=== PATIENT | male | born 1970 | race Caucasian/White ===

== ENCOUNTER → 2017-11-21 08:53 | Outpatient (CLI) | payer OTHER, SELFPAY ==
[2017-11-21 10:24] LABS: PSA,Total- Diagnostic 0.83 ng/mL (0.0-4.0)
== END ==
PROVIDERS: Family Provider Internal Medicine; PCP Internal Medicine; Referring Provider Internal Medicine; Visit Provider Internal Medicine
DX: Z12.5 Encounter for screening for malignant neoplasm of prostate (principal)
CPT/HCPCS: 36415; 84153

== ENCOUNTER → 2019-11-28 08:57 | Outpatient (CLI) | payer OTHER, SELFPAY ==
[2018-03-05 10:40] VITALS: BMI 31.6
== END | disposition home or self-care (01) ==
PROVIDERS: PCP Internal Medicine; Referring Provider Internal Medicine; Visit Provider Internal Medicine
CPT/HCPCS: 36415; 84153; G0103

== ENCOUNTER → 2020-12-01 08:52 | Outpatient (CLI) | payer OTHER, SELFPAY | PROVIDERS: PCP Internal Medicine; Referring Provider Internal Medicine; Visit Provider Internal Medicine | DX: Z12.5 Encounter for screening for malignant neoplasm of prostate (principal) | CPT/HCPCS: 36415; 84153; G0103 ==

== ENCOUNTER 2021-02-22 05:29 | Day surgery (SDC) | payer OTHER, SELFPAY ==
[2021-02-22 05:53] VITALS: BP 144/93; PULSE 57; RESP 16; TEMP 36.6; O2SAT 98; BMI 34.9
[2021-02-22] MEDS: Lactated Ringers 1,000 ML 15 ML IV (05:59)
--- NOTE | 2021-02-22 06:32 | PCM.HP.BLA ---
History and Physical Date of Admission: 02/22/21 Solomon is a 50-year-old gentleman who arrives here for screening colonoscopy. He has never had a colonoscopy in the past. He has no significant past medical history. He does not have any problems with his bowels. He is not having any bloating, abdominal pain or GI bleeding. His weight has been stable. He does not take any medicines on a daily basis. He has no known drug allergies. Overall he is in a really good state of health. Past medical history -negative Past surgical history-negative Allergies-no known drug allergies Review of systems-all 16 review of systems except those pertinent positives mentioned HPI. Social history-negative alcohol and drugs Physical examination-blood pressure is 144/93, pulse is 57, respiratory 16, temperature is 98, satting 98% on room air Generally no acute distress HEENT-normocephalic atraumatic Neck-no JVD or lymphadenopathy Lungs-clear to auscultation bilaterally Heart-regular rate regular rhythm Abdomen soft nontender nondistended Extremities-no clubbing cyanosis or edema Assessment and plan: 50-year-old gentleman comes in for screening colonoscopy. He was explained alternatives, risk, benefits including and not was any bleeding, infection, sepsis, perforation, need for emergent surgery and . He will have an ASA of 1.
[2021-02-22 07:06] VITALS: BP 108/84; BP 144/93; PULSE 60; RESP 16; TEMP 36.1; O2SAT 96
--- NOTE | 2021-02-22 07:08 | OP.COLON_ITS ---
Patient Name: Solomon Reddy Procedure Date: 02/22/2021 6:28 AM Date of : 1970 Age: 50 Procedure: Colonoscopy Indications: Screening for colorectal malignant neoplasm Providers: Julien Mcdaniels DO Medicines: See the Anesthesia note for documentation of the administered medications Patient Profile: Last Colonoscopy: date unknown. Unable to locate last colonoscopy report. Last Colonoscopy: none. The patient's first colonoscopy is today. Complications: No immediate complications. Procedure: Pre-Anesthesia Assessment: - Prior to the procedure, a History and Physical was performed, and patient medications and allergies were reviewed. The patient is competent. The risks and benefits of the procedure and the sedation options and risks were discussed with the patient. All questions were answered and informed consent was obtained. Patient identification and proposed procedure were verified by the physician in the pre-procedure area. Mental Status Examination: alert and oriented. Airway Examination: normal oropharyngeal airway and neck mobility. Respiratory Examination: clear to auscultation. CV Examination: normal. Prophylactic Antibiotics: The patient does not require prophylactic antibiotics. Prior Anticoagulants: The patient has taken no previous anticoagulant or antiplatelet agents. After reviewing the risks and benefits, the patient was deemed in satisfactory condition to undergo the procedure. The anesthesia plan was to use moderate sedation / analgesia (conscious sedation). Immediately prior to administration of medications, the patient was re-assessed for adequacy to receive sedatives. The heart rate, respiratory rate, oxygen saturations, blood pressure, adequacy of pulmonary ventilation, and response to care were monitored throughout the procedure. The physical status of the patient was re-assessed after the procedure. After I obtained informed consent, the scope was passed under direct vision. Throughout the procedure, the patient's blood pressure, pulse, and oxygen saturations were monitored continuously. The colonoscope was introduced through the anus and advanced to the cecum, identified by appendiceal orifice and ileocecal valve. The ileocecal valve, appendiceal orifice, and rectum were photographed. Moderate Sedation: Moderate (conscious) sedation was personally administered by an anesthesia professional. The following parameters were monitored: oxygen saturation, heart rate, blood pressure, respiratory rate, EKG, adequacy of pulmonary ventilation, and response to care. Total physician intraservice time was 15 minutes. Scope In: 6:46:37 AM Scope Withdrawal Time 0 hours 12 minutes 39 seconds Scope Out: 7:03:05 AM Total Procedure Duration Time 0 hours 16 minutes 28 seconds Findings: The perianal and digital rectal examinations were normal. The entire examined colon appeared normal on direct and retroflexion views. Impression: - The entire examined colon is normal on direct and retroflexion views. - No specimens collected. Recommendation: - Discharge patient to home. - Resume previous diet. - Continue present medications. - Repeat colonoscopy in 10 years for screening purposes. - Return to GI office PRN. Procedure Code(s): --- Professional --- 93364, Colonoscopy, flexible; diagnostic, including collection of specimen(s) by brushing or washing, when performed (separate procedure) CPT copyright 2017 [employer]. All rights reserved. The codes documented in this report are preliminary and upon medical record coder review may be revised to meet current compliance requirements. Julien Mcdaniels DO 02/22/2021 7:08:29 AM This report has been signed electronically. Number of Addenda: 1 Note Initiated On: 02/22/2021 6:28 AM Addendum Number: 1 Addendum Date: 10/21/2021 6:11:42 AM MAC was used instead of moderate sedation for the patient. Julien Mcdaniels DO 10/21/2021 6:11:46 AM This report has been signed electronically.
--- NOTE | 2021-02-22 07:09 | OP.CCLET_ITS ---
10/21/2021 Sofy Glez [address] [place] [address] Re : Colonoscopy procedure for Solomon Reddy Dear Dr. Glez This procedure was performed on Monday, February 22, 2021. My impressions and recommendations are as follows: Impressions : - The entire examined colon is normal on direct and retroflexion views. - No specimens collected. Recommendations : - Discharge patient to home. - Resume previous diet. - Continue present medications. - Repeat colonoscopy in 10 years for screening purposes. - Return to GI office PRN. My findings are described in the full procedure note, which is enclosed. If I can be of further assistance, please feel free to contact me at . Sincerely, Julien Mcdaniels, 02/22/2021 7:08:29 AM This report has been signed electronically.
[2021-02-22 07:10] VITALS: BP 103/82; BP 144/93; PULSE 57; RESP 16; O2SAT 95
[2021-02-22 07:16] VITALS: BP 138/95; BP 144/93; PULSE 65; RESP 16; O2SAT 96
[2021-02-22 07:22] VITALS: BP 133/98; BP 144/93; PULSE 62; RESP 16; TEMP 36.6; O2SAT 9
[2021-02-22 07:35] VITALS: BP 144/93
== END 2021-02-22 23:59 | disposition home or self-care (01) ==
LOC: EN 05:30 → AC 05:31
PROVIDERS: PCP Internal Medicine; Referring Provider Internal Medicine; Visit Provider Internal Medicine Gastroenterology
PROC: 0DJD8ZZ Inspection of Lower Intestinal Tract, Via Natural or Artificial Opening Endoscopic (ICD-10-PCS; CPT 45378; principal; 2021-02-22 06:25)
DX: Z12.11 Encounter for screening for malignant neoplasm of colon (principal)
CPT/HCPCS: 45378; J7120

== ENCOUNTER → 2021-12-23 | Outpatient (CLI) | payer OTHER, SELFPAY ==
[2021-12-23 10:21] LABS: Anion Gap 6 (5-15); BUN 25 mg/dL (7-18); BUN/Creat Ratio 24.8 RATIO (10-20); Calcium,Total 9.3 mg/dL (8.5-10.1); Chloride 101 mmol/L (98-107); Creatinine, Serum 1.01 mg/dL (0.70-1.30); EST Glomerular Filtration Rate 83 mL/min (>60); Est Glom Filt Rate - Afr Amer 100 mL/min (>60); Glucose 93 mg/dL (74-106); Potassium 4.4 mmol/L (3.5-5.1); Sodium Level 135 mmol/L (136-145)
== END | disposition home or self-care (01) ==
LOC: MTLAB 08:12
PROVIDERS: PCP Internal Medicine; Referring Provider Internal Medicine; Visit Provider Internal Medicine
DX: I10 Essential (primary) hypertension (principal)
CPT/HCPCS: 36415; 80048

== ENCOUNTER → 2022-07-21 | Outpatient (CLI) | payer OTHER, SELFPAY ==
[2022-07-21 10:58] LABS: PSA,Total - Annual Screen 0.89 ng/mL (0.00-4.00)
== END | disposition home or self-care (01) ==
LOC: MTLAB 08:46
PROVIDERS: PCP Internal Medicine; Referring Provider Internal Medicine; Visit Provider Internal Medicine
DX: Z12.5 Encounter for screening for malignant neoplasm of prostate (principal)
CPT/HCPCS: 36415; 84153; G0103

== ENCOUNTER → 2023-07-31 | Outpatient (CLI) | payer OTHER, SELFPAY ==
[2023-07-31 13:11] LABS: PSA,Total - Annual Screen 0.83 ng/mL (0.00-4.00)
== END | disposition home or self-care (01) ==
PROVIDERS: PCP Internal Medicine; Referring Provider Internal Medicine; Visit Provider Internal Medicine
DX: Z12.5 Encounter for screening for malignant neoplasm of prostate (principal)
CPT/HCPCS: 36415; 84153; G0103

== ENCOUNTER → 2023-11-16 | Outpatient (CLI) | payer OTHER, SELFPAY ==
[2023-11-16 14:03] LABS: Hemoglobin A1c 5.2 % (3.8-5.6)
== END | disposition home or self-care (01) ==
PROVIDERS: PCP Internal Medicine; Referring Provider Internal Medicine; Visit Provider Internal Medicine
DX: Z00.01 Encounter for general adult medical examination with abnormal findings (principal)
CPT/HCPCS: 36415; 83036

== ENCOUNTER → 2024-11-05 | Outpatient (CLI) | payer OTHER, SELFPAY ==
[2024-11-05 10:52] LABS: PSA,Total - Annual Screen 0.83 ng/mL (0.02-4.00)
== END | disposition home or self-care (01) ==
LOC: MTLAB 08:43
PROVIDERS: PCP Internal Medicine; Referring Provider Internal Medicine; Visit Provider Internal Medicine
DX: Z12.5 Encounter for screening for malignant neoplasm of prostate (principal)
CPT/HCPCS: 36415; 84153; G0103

== ENCOUNTER → 2024-11-13 | Outpatient (CLI) | payer OTHER, SELFPAY ==
--- NOTE | 2024-11-13 07:39 | US_ITS ---
PROCEDURE: ABD COMPLETE W/ ELASTOGRAPHY 11/13/2024 REASON FOR EXAM: ELEVATED LIVER ENZYMES TECHNIQUE: Procedure Code: [id number] Modality: US Procedure: ABD COMPLETE W/ ELASTOGRAPHY FINDINGS: LIVER: Size: Unremarkable Length: 20.1 cm Echotexture: Echogenic. Contour: Normal Lesions: None identified Elastography: EQI Med: 3.8 kPa EQI Med Jenaro: 1.12 m/s IQR/Med: 12 %* GALLBLADDER: Normal COMMON BILE DUCT: Normal 6 mm. PANCREAS: Normal KIDNEYS: The right kidney measures 13.0 x 6.4 x 6.4 cm. The left kidney measures 13.1 x 6.0 x 6.4 cm. Renal parenchymal thicknesses and echotextures are preserved. No hydronephrosis. SPLEEN: 12.4 x 6.4 x 7.0 cm. No mass. AORTA: Normal caliber IVC: Visualized inferior vena cava is unremarkable. PERITONEAL FINDINGS: No ascites identified. US/ABD Complete w/ Elastography IMPRESSION: Diffuse hepatocellular disease. Metavir score F0 Reference Values: SRU <1.37 m/s (5.7kPa): No to mild fibrosis 1.37 m/s - 2.2 m/s: Moderate to severe fibrosis >2.2 m/s (15kPa): Significant fibrosis / cirrhosis METAVIR Score F2 or higher: 1.34 m/s (5.7kPa) F3 or higher: 1.55 m/s (7.3kPa) F4: 1.80 m/s (10kPa) * If the IQR/Med is >30%, the variance in the measurements is a large and the a ccuracy of the measurement may be in question. Reading Location: [id number]
--- NOTE | 2024-11-13 08:00 | CT_ITS ---
PROCEDURE: LIMITED CHEST CT CARDIAC ONLY 11/13/2024 REASON FOR EXAM: HYPERCHLOESTEREMIA Hypertension. TECHNIQUE: Procedure Code: [id number] Modality: CT Procedure: LIMITED CHEST CT CARDIAC ONLY One or more dose reduction techniques were used (e.g., Automated exposure control, adjustment of the mA and/or kV according to patient size, use of iterative reconstruction technique). RADIATION DOSE SUMMARY: CTDlvol: 12.19 mGy DLP: 243.79 mGycm COMPARISON: None. CT/Limited Chest CT Cardiac Only IMPRESSION: Limited imaging of the lungs demonstrates no acute process. No pleural effusion or pneumothorax is seen in visualized areas. No adenopathy is noted. The visualized upper abdomen demonstrates no significant abnormality. Reading Location: [id number]
--- NOTE | 2024-11-13 08:00 | CT_ITS ---
PROCEDURE: LIMITED CHEST CT CARDIAC ONLY 11/13/2024 REASON FOR EXAM: HYPERCHLOESTEREMIA Hypertension. TECHNIQUE: Procedure Code: [id number] Modality: CT Procedure: LIMITED CHEST CT CARDIAC ONLY One or more dose reduction techniques were used (e.g., Automated exposure control, adjustment of the mA and/or kV according to patient size, use of iterative reconstruction technique). RADIATION DOSE SUMMARY: CTDlvol: 12.19 mGy DLP: 243.79 mGycm COMPARISON: None. CT/Limited Chest CT Cardiac Only IMPRESSION: Limited imaging of the lungs demonstrates no acute process. No pleural effusion or pneumothorax is seen in visualized areas. No adenopathy is noted. The visualized upper abdomen demonstrates no significant abnormality. Reading Location: [id number]
--- NOTE | 2024-11-13 18:15 | CCTA_ITS ---
Calcium Scoring Date of Study:: 11/13/24 Indications Indications: Hyperlipidemia Coronary Calcium Scoring: High-resolution Computed Tomographic imaging of the chest was performed on [11/13/24], with particular attention paid to the coronary arteries. Images from the examination were analyzed for the presence and extent of coronary artery calcification , using coronary calcium quantification software. The patient tolerated the procedure well and there were no complications. The results of the coronary calcification analysis are provided below. Findings Coronary Artery Left Main (LM): 0 Left Anterior Descending (LAD): 173 Left Circumflex (LCX): 28.9 Right Coronary Artery (RCA): 10.2 Total Agatston Score: 212.1 Percentile Rankin-90 Calcium Scoring Interpretation: Different methods to categorize the overall amount of coronary plaque. Overall amount CAC SIS Visual of coronary plaque P1 Mild -100 <2 1-2 vessels with mild amount of plaque P2 Moderate 101-300 3-4 1-2 vessels with moderate amount, 3 vessels with mild amount of plaque P3 Severe 301-999 5-7 3 vessels with moderate amount, 1 vessel with severe amount of plaque P4 Extensive >1000 >8 2-3 vessels with severe amount of plaque Calcium Score: Moderate: 1-2 vessels w/moderate amt, 3 vessels w/mild amt of pl aque Conclusion: 3 vessel with mild plaque present.
== END | disposition home or self-care (01) ==
PROVIDERS: PCP Internal Medicine; Referring Provider Internal Medicine; Visit Provider Internal Medicine
DX: R74.8 Abnormal levels of other serum enzymes (principal); E78.00 Pure hypercholesterolemia, unspecified
CPT/HCPCS: 75571; 76380; 76700; 76981

== ENCOUNTER → 2024-12-25 | Outpatient (CLI) | payer OTHER, SELFPAY ==
--- NOTE | 2024-12-25 16:29 | RAD_ITS ---
PROCEDURE: L/S SPINE MIN 4 VIEWS 12/25/2024 REASON FOR EXAM: BACK PAIN TECHNIQUE: Procedure Code: RADSPLS Modality: DX Procedure: L/S SPINE MIN 4 VIEWS COMPARISON: None FINDINGS: Bony demineralization is noted involving the lumbar spine and sacrum. The visualized sacrum appears to be intact without evidence of fracture. The entire sacrum is not included on this study. SI joints are unremarkable. There are 5 lumbar-type vertebral bodies below the last set of paired ribs. There is a subtle decrease in height of the anterior aspect of the L1 vertebral body by approximately 3% which may be related to an osteoporotic compression fracture. The age of which is indeterminate. The remaining lumbar vertebral bodies demonstrate normal height and no spondylolysis. The vertebral body alignments are within normal limits. There is no spondylolisthesis. Mild spondylosis of the lower thoracic spine and lumbar spine are noted. Degenerative disc disease is seen involving the L5-S1 disc. The remaining disc spaces are well-maintained. A moderate to large amount of stool and gas are present within the visualized portion of the colon. There is no evidence of ileus or bowel obstruction on the images submitted for review. RAD/L/S Spine Min 4 Views IMPRESSION: There is a subtle decrease in height of the anterior aspect of the L1 vertebral body by approximately 3% which may be related to an osteoporotic compression fracture. The age of which is indeterminate. Degenerative disc disease is seen involving the L5-S1 disc. Reading Location: [id number]
== END | disposition home or self-care (01) ==
LOC: MTRAD 16:29
PROVIDERS: PCP Internal Medicine; Referring Provider Student in an Organized Health Care Education/Training Program; Visit Provider Student in an Organized Health Care Education/Training Program
DX: M54.9 Dorsalgia, unspecified (principal)
CPT/HCPCS: 72110

== ENCOUNTER → 2025-01-13 | Outpatient (CLI) | payer OTHER, SELFPAY ==
--- NOTE | 2025-01-13 07:15 | MRI_ITS ---
PROCEDURE: SPINE LUMBAR (ROUTINE) 01/13/2025 REASON FOR EXAM: Clinical history of low back pain TECHNIQUE: Procedure Code: MRISPL Modality: MR Procedure: SPINE LUMBAR (ROUTINE) COMPARISON: None available FINDINGS: For the purposes of this report, the most caudal rectangular vertebral body will be designated L5. The next most caudal trapezoidal shaped vertebral body will be designated S1. The intervening disc at the lumbosacral angle is designated L5-S1. Mild straightening of the lumbar spine. The lumbar vertebral bodies are normal in height. The lumbar vertebral bodies are normal in alignment. The lumbar bone marrow signal is within normal limits. Multilevel disc desiccation and intervertebral disc space height loss. There is no evidence of signal abnormality in the imaged distal spinal cord. The conus medullaris terminates at the level of L2. T12-L1: No significant spinal canal stenosis or neural foraminal narrowing. L1-L2: No significant spinal canal stenosis or neural foraminal narrowing. L2-L3: Disc bulge, bilateral facet arthrosis, and ligamentum flavum hypertrophy contribute to mild spinal canal stenosis. No significant neural foraminal narrowing. L3-L4: Disc bulge flattens the ventral thecal sac. Bilateral facet arthrosis and ligamentum flavum hypertrophy. No significant neural foraminal narrowing. L4-L5: Disc bulge flattens the ventral thecal sac. Bilateral facet arthrosis and ligamentum flavum hypertrophy. No significant neural foraminal narrowing. Type 2 Modic endplate changes. L5-S1: Disc bulge and bilateral facet arthrosis. No significant spinal canal or neural foraminal stenosis. Type 2 Modic endplate changes. The posterior paraspinal muscles are unremarkable. MRI/Spine Lumbar (Routine) IMPRESSION: Lumbar spondylosis without high-grade spinal canal or neural foraminal stenosis . Reading Location: [id number]
--- OUTSIDE RECORDS SUMMARY | 2025-01-13 07:16 | XMS RPT_ITS | CCD ---
Author Organization [facility] Care Team Providers Care Tack Puller Machine Name Role Phone Sofy Glez Unavailable Ada Chandra Unavailable GravBrook lawson Unavailable Unavailable Brit Reed Unavailable Unavailable Unavailable Unavailable Sofy Glez DO Unavailable Friend, Dr. Victoria Unavailable Ada Chandra MD Unavailable [phone] Gilbert Dewey Unavailable [phone] Gravius STEFFI, Brook Unavailable Unavailable Michael Madden LPN Unavailable Unavailable Messenger Brit ARORA Unavailable Unavailable Unavailable Unavailable Melissa Meyer LPN Unavailable Unavailable Sofy Glez DO Unavailable Ada Chandra MD Unavailable [phone] Manchak SLURRY MIXER, Agnes Unavailable Unavailable Aaron STEFFI, Kayela Unavailable Unavailable Sofy Glez DO Attending Unavailable Ada Chandra MD Referring Unavailable Sofy Glez DO Consulting Dr. Sofy Bueno DO Primary Care Physician Assessment, Health Risk Attending Physician Unav ailable Assessment, Health Risk Referring Provider Unava ilDr. Sofy Shipman DO Attending Physician [phone] Dr. Sofy Glez DO Referring Provider [phone] Sofy Glez Primary Care Unavailable Assessment, Health Risk Attending Unavaila ble Assessment, Health Risk Referring Unavaila ble Jolie James Attending Unavailable Jacob, Jolie Referring Unavailable Amaris, Sofy Primary Care Unavailable Jolie James Attending Unavailable Amaris, Sofy Referring Unavailable Amaris, Sofy Primary Care Unavailable JoshZenia madridl Attending Unavailable Amaris, Sofy Consulting Unavailable Amaris, Sofy Referring Unavailable Amaris, Sofy Primary Care Unavailable Amaris, Sofy Primary Care Unavailable Amaris, Sofy Attending Unavailable Amaris, Sofy Referring Unavailable Amaris, Sofy Primary Care Unavailable Amaris, Sofy Attending Unavailable Amaris, Sofy Referring Unavailable Medications Completed/Discontinued Medications Medication Drug Class(es) Dates Sig (Normalized) Sig (Original) acetaminophen 325 mg / HYDROcodone bitartrate 5 mg oral tablet (13 sources) Opioid Agonist Start: 08-11-2014 End: 11-10-2014 take 1 tablet by mouth every six hours as needed HYDROCODONE-ACETA MINOPHEN, 5-325MG (Oral Tablet) 1 (one) Tablet every 6 hours prn bad back flare for 0 days Quantity: 20 {Tablet} Refills: 0 Ordered: 10-Nov-2014 Reanna Marin Start : 11-Aug-2014 End : 10-Nov-2014 Inactive Comments: twenty Comment on above: twenty [id number] 200 actuat albuterol 0.09 mg/actuat metered dose inhaler (13 sources) beta2-Adrenergic Agonist Start: 11-11-2009 End: 11-01-2011 PROVENTIL HFA, 108 (90 Base)MCG/ACT (Inhalation Aerosol Solution) 2 (two) Aerosol Soln qid prn for 0 days Quantity: 1 {Aerosol_Soln} Refills: 1 Ordered: 01-Nov-2011 KWADWO Cali LPN Start : 11-Nov-2009 End : 01-Nov-2011 Inactive Start: 11-11-2009 End: 11-01-2011 PROVENTIL HFA, 108 (90 Base) MCG/ACT (Inhalation Aerosol Solution) 2 (two) Aerosol Soln qid prn for 0 days Quantity: 1 {Aerosol_Soln} Refills: 1 Ordered: 01-Nov-2011 KWADWO Cali LPN Start : 11-Nov-2009 End : 01-Nov-2011 Inactive amLODIPine 5 mg oral tablet (9 sources) Dihydropyridine Calcium Channel Otoniel Start: 11-22-2021 End: 10-10-2022 take 1 tablet by mouth once daily Norvasc 5 MG Oral Tablet 1 (one) Tablet qd for 0 days Quantity: 30 {Tablet} Refills: 3 Ordered: 22-Nov-2021 Amaris CRESPO Sofy AmarisJulite strickland DOeen Start : 22-Nov-2021 End : 22-Nov-2021 Discontinued Start: 07-14-2021 take 1 tablet by fernando th once daily Norvasc 5 MG Oral Tablet 1 (one) Tablet qd for 0 days Quantity: 30 {Tablet} Refills: 3 Ordered: 14-Jul-2021 Amaris DO, Sofy AmarisJuliet strickland DOeen Start : 14-Jul-2021 Active Start: 04-14-2021 take 1 tablet by fernando th once daily Norvasc 5 MG Oral Tablet 1 (one) Tablet qd for 0 days Quantity: 30 {Tablet} Refills: 3 Ordered: 14-Apr-2021 Amaris DO, Sofy Amaris DO, Sofy Start : 14-Apr-2021 Active ciprofloxacin 500 mg oral tablet (13 sources) Quinolone Antimicrobial Start: 02-16-2017 End: 02-26-2017 take 1 tablet by mouth twice daily Cipro 500 MG Oral Tablet 1 (one) Tablet bid for 10 days Quantity: 20 {Tablet} Refills: 0 Ordered: 16-Feb-2017 Brit Reed RN Start : 16-Feb-2017 End : 26-Feb-2017 Inactive 24 hr clarithromycin 500 mg extended release oral tablet (13 sources) Macrolide Antimicrobial Start: 11-11-2009 End: 11-01-2011 take 2 tablets by mouth once daily BIAXIN XL, 500MG (Oral Tablet Extended Release 24 Hour) 2 (two) Tablet ER 24HR qd for 0 days Quantity: 20 {Tablet_ER_24HR} Refills: 0 Ordered: 01-Nov-2011 KWADWO Cali LPN Start : 11-Nov-2009 End : 01-Nov-2011 Inactive hydroCHLOROthiazide 25 mg oral tablet (13 sources) Thiazide Diuretic Start: 03-16-2022 take 1 tablet by mouth once daily hydroCHLOROthiazide 25 mg oral tablet 1 (one) Tablet QD for 90 days Quantity: 90 {Tablet} Refills: 3 Ordered: 25-May-2022 Sofy Glez DO, DO, Kathleen Start : 25-May-2022 Active Start: 11-22-2021 take 1 tablet by fernando th once daily hydroCHLOROthiazide 25 MG Oral Tablet 1 (one) Tablet QD for 0 days Quantity: 30 {Tablet} Refills: 3 Ordered: 22-Nov-2021 Brook Chisholm CMA Start : 22-Nov-2021 Active Start: 07-14-2021 take 1 tablet by fernando th once daily hydroCHLOROthiazide 25 MG Oral Tablet 1 (one) Tablet QD for 0 days Quantity: 30 {Tablet} Refills: 3 Ordered: 14-Jul-2021 Sofy Glez DO, DO, Kathleen Start : 14-Jul-2021 Active Start: 09-25-2006 End: 04-24-2007 take 0.5 tablet by mouth once daily HYDROCHLOROTHIAZIDE, 25MG (Oral Tablet) 1/2 Tablet QD for 0 days Refills: 0 Ordered: 24-Apr-2007 Ada Chandra MD Start : 25-Sep-2006 End : 24-Apr-2007 Discontinued hydroCHLOROthiazide 25 mg / lisinopril 20 mg oral tablet (13 sources) Thiazide Diuretic, Angiotensin Converting Enzyme Inhibitor Start: 04-24-2007 End: 09-24-2007 take 1 tablet by mouth once daily ZESTORETIC, 20-25MG (Oral Tablet) Tablet QD for 0 days Quantity: 30 {Tablet} Refills: 6 Ordered: 24-Apr-2007 KWADWO Cali LPN Start : 24-Apr-2007 End : 24-Sep-2007 Discontinued lisinopril 20 mg oral tablet (5 sources) Angiotensin Converting Enzyme Inhibitor Start: 05-25-2022 take 1 tablet by mouth twice daily lisinopriL 20 mg oral tablet 1 (one) Tablet bid for 90 days Quantity: 180 {Tablet} Refills: 3 Ordered: 25-May-2022 Sofy Glez DO, DO, Kathleen Start : 25-May-2022 Active Comments: new dose Start: 05-24-2022 take 1 tablet by fernando th once daily lisinopriL 20 mg oral tablet 1 (one) Tablet qd for 0 days Quantity: 30 {Tablet} Refills: 3 Ordered: 24-May-2022 Sofy Glez DO, DO, Kathleen Start : 24-May-2022 Active Start: 03-16-2022 take 1 tablet by fernando th once daily lisinopriL 20 mg oral tablet 1 (one) Tablet qd for 0 days Quantity: 30 {Tablet} Refills: 3 Ordered: 16-Mar-2022 Amaris CRESPO Sofy Glez DOJulietSofy Start : 16-Mar-2022 Active Start: 12-27-2021 take 1 tablet by fernando th once daily Lisinopril 20 MG Oral Tablet 1 (one) Tablet qd for 0 days Quantity: 30 {Tablet} Refills: 3 Ordered: 27-Dec-2021 Amaris CRESPO Sofytoro Glez DOJulietSofy Start : 27-Dec-2021 Active Start: 11-22-2021 take 1 tablet by fernando th twice daily Lisinopril 20 MG Oral Tablet 1 (one) Tablet bid for 0 days Quantity: 60 {Tablet} Refills: 3 Ordered: 22-Nov-2021 Amaris CRESPOSofy AmarisSofy strickland DO Start : 22-Nov-2021 Active Comment on above: new dose meloxicam 15 mg oral tablet (7 sources) Nonsteroidal Anti-inflammatory Drug Start: 2 End: 2 take 1 tablet by mouth once daily Meloxicam 15 MG Oral Tablet 1 (one) Tablet 1 tab qd for 0 days Quantity: 30 {Tablet} Refills: 0 Ordered: 22-Nov-2021 Brook Chisholm CMA Start : 06-Aug-2021 End : 22-Nov-2021 Inactive Comments: start after done with prednisone Comment on above: start after done wit h prednisone Multivitamin Oral Tablet (10 sources) Multivitamin Ora l Tablet Active Multivitamin preparation (13 sources) take 1 tablet by mouth once daily MULTIVITAMIN (PO Tab) 1 tab qd Inactive predniSONE 20 mg oral tablet (7 sources) Start: 2 End: 2 predniSONE 20 MG Oral Tablet 1 (one) Tablet bid x 2 days with food for 0 days Quantity: 4 {Tablet} Refills: 0 Ordered: 22-Nov-2021 Brook Chisholm CMA Start : 06-Aug-2021 End : 22-Nov-2021 Inactive tiZANidine 4 mg oral tablet (7 sources) Central alpha-2 Adrenergic Agonist Start: 2 End: 2 take 1 tablet by mouth twice daily as needed for pain tiZANidine HCl 4 MG Oral Tablet 1 (one) Tablet 1 tab bid prn back pain for 0 days Quantity: 30 {Tablet} Refills: 0 Ordered: 22-Nov-2021 Brook Chisholm CMA Start : 06-Aug-2021 End : 22-Nov-2021 Inactive valsartan 160 mg oral tablet (20 sources) Angiotensin 2 Receptor Otoniel Start: 8 take 1 tablet by mouth once daily DIOVAN, 160MG (Oral Tablet) 1 Tablet qd for 0 days Quantity: 90 {Tablet} Refills: 3 Ordered: 31-Aug-2009 KWADWO Cali LPN Start : 06-Nov-2007 Inactive End: 11-06-2007 take 1 capsule by mouth once daily DIOVAN, 80MG (PO Cap) 1 qd for 0 days Refills: 0 Ordered: 24-Sep-2007 KWADWO Cali LPN End : 06-Nov-2007 Inactive Problems Active Problems Problem Classification Problem Date Documented Date Episodic/Chronic Administrative/socia l admission (16 sources) Patient encounter status; Translations: [Encounter for pre-employment examination] Resolved: 5 12-30-2014 Episodic Disorders of lipid metabolism (20 sources) Hypercholesterolemia; Translations: [Hypercholesteremia] Onset: 5 09-30-2019 Chronic Comment on above: chronic stable-jennifer nue present regimen controlled Essential hypertension (20 sources) Unspecified essential hypertension; Translations: [Malignant essential hypertension] Resolved: 9 01-06-2015 Chronic Comment on above: no TOÑO, CHRIST neg.doin g well with diet, weight loss and exercise--better. 40 min 6 days a week cardiovascular. continue aggressive diet and exercise- weight loss- caffeine and salt restriciton every time take cold meds it bounces up -- its not coming down this time -- its been 2-1/2 weeks now working on wt loss a nd exercise to reduce -- cont to follow - cont current meds Other liver diseases (1 source) Abnormal levels of other serum enzymes; Translations: [Abnormal levels of other serum enzymes] Onset: 5 Episodic Other nutritional; endocrine; and metabolic disorders (9 sources) Overweight; Translations: [Overweight] 09-30-2019 Chronic Comment on above: improving Other nutritional; endocrine; and metabolic disorders (20 sources) Body mass index 30+ - obesity; Translations: [BMI 35.0-35.9,adult] Resolved: 3 09-30-2019 Chronic Other nutritional; endocrine; and metabolic disorders (20 sources) Overweight; Translations: [Overweight] Resolved: 1 11-02-2020 Episodic Comment on above: improving Other screening for suspected conditions (not mental disorders or infectious disease) (20 sources) Liver function tests abnormal; Translations: [Patient encounter status] Onset: 5 Resolved: 9 11-07-2018 Episodic Other upper respiratory infections (2 sources) Acute upper respiratory infection; Translations: [Acute upper respiratory infection, unspecified] 03-05-2018 Episodic Pneumonia (except that caused by tuberculosis or sexually transmitted disease) (19 sources) Bacterial pneumonia; Translations: [Unspecified bacterial pneumonia] Resolved: 5 12-30-2014 Episodic Residual codes; unclassified (20 sources) Non-smoker; Translations: [Nonsmoker] 11-06-2017 Episodic Spondylosis; intervertebral disc disorders; other back problems (20 sources) Chronic low back pain; Translations: [Chronic LBP] Onset: 5 09-30-2019 Episodic Comment on above: flare so bad affect ADLS. done PT many times and on home exercises and still so severe not able to move when get. soound like disc. coannot rule out spondylolithiasis. will do MMRI. Unclassified (20 sources) Unclassified (20 sources) PPD positive 09-30-2019 Comment on above: treated no signs and symptoms. 07-22 CXR no signs and symptoms will talk to ID about ? quantiferron gold test and not doing cxr Unclassified (20 sources) Hypercholesteremia (272.0) Unclassified (20 sources) Elevated LFT (790.6) Unclassified (20 sources) Non-smoker Unclassified (7 sources) Chronic LBP Unclassified (2 sources) BMI 33.0-33.9,adult Unclassified (2 sources) Hypercholesteremia Unclassified (1 source) Low back pain, unspecified; Translations: [Low back pain, unspecified] Onset: 5 Unclassified (1 source) Other intervertebral disc degeneration, lumbar region with discogenic back pain and lower extremity pain; Translations: [Other intervertebral disc degeneration, lumbar region with discogenic back pain and lower extremity pain] Onset: 5 Past or Other Problems Problem Classification Problem Date Documented Da te Episodic/Chronic Pneumonia (except that caused by tuberculosis or sexually transmitted disease) (7 sources) Pneumonia (except that caused by tuberculosis or sexually transmitted disease) Unclassified (20 sources) Patient encounter status; Translations: [Annual physical exam] Resolved: 08-11-2014 09-30-2019 Comment on above: filled out paper. merrill ting better and exercise. Unclassified (20 sources) Screening status; Translations: [Encounter for screening for malignant neoplasm of prostate (Renamed from Screening for prostate cancer)] 09-30-2019 Unclassified (20 sources) Non-smoker; Translations: [Nonsmoker] 11-06-2017 Unclassified (14 sources) BMI 35.0-35.9,adult Unclassified (7 sources) PE (physical exam), annual Unclassified (14 sources) BMI 34.0-34.9,adult Unclassified (7 sources) Elevated LFTs Unclassified (14 sources) Physical exam Unclassified (7 sources) Body mass index 35.0-35.9, adult Unclassified (14 sources) Well Male Exam (V70.0) Unclassified (7 sources) Work Physical (V70.5) Unclassified (8 sources) Colon cancer screening (Renamed from Encounter for screening for malignant neoplasm of colon) Unclassified (4 sources) Encounter for general adult medical examination without abnormal findings Results Test Name Value Interpretation Reference Range Facility Orthopedic Visit Reporton Orthopedic Visit Report [facility] [address] [place] [address] OFFICE VISIT Date of Service: 12/26/24 MR#: [id number] Acct: [id number] Name: NIKOLAI RIVERA Rep #: [id number] : 1970 Provider: GUERO Galaviz Age/Sex: 54/M Location: [facility] [place] Status: Signed Intake Vital Signs 02/22/21 05:53 12/26/24 09:02 Height 6 ft 6 ft Weight: 245 lb BMI 33.2 Intake Visit Reasons: LUMBAR SPINE Chief Complaint: Lumbar spine ongoing pain Accompanied by: Self Is patient in pain?: No Allergies No Known Allergies Allergy (Unverified 12/26/24 09:05) Medications ???Medication ???Instructions ???Recorded ???Confirmed ???Type hydrochlorothiazide 25 mg tablet 25 mg PO QDAY 12/26/24 12/26/24 Hi story lisinopril 20 mg tablet 20 mg PO BID 12/26/24 12/26/24 His tory Have you fallen in the past year?: No PFSH Medical History Back pain Non-smoker Severe headache Surgical History Hx of wisdom tooth extraction History of elbow surgery Social History Smoking Status: Never smoker alcohol intake: never HPI LUMBAR SPINE Details: This documentation accurately reflects the service provided and the decisions made by me, GUERO Galaviz 12/26/24 0901. Part of today???s visit was documented by Romain Frias MA, acting as scribe. NIKOLAI RIVERA is a 54 year old M here today for lumbar spine. Patient states that he doesn't have any pain today. He is having pain that goes across the lower back. Sometimes he will get pain on the left side of the lower back. Patient doesn't get pain going down the legs. He will on occasion get pain in the left leg however this is not a consistent issue. He has had numbness once or twice going down the left leg. The pain most day is dull, and achy. Bending forward seems to increase the pain. Extending also seems to increase the pain. Patient feels like there is some instability and so long as he is completely neutral his pain improves. Sometimes when he moves wrong he will feel some sharpness. Patient states that this has been going on for 10-12 years ago. The first time he noticed his lower back pain is when he was playing football in his back yard years ago. At the time he wasn't able to get out of bed, but then it got better. He states that the pain is slowly creeping back. The pain is not worse then it was 10 years ago. Back then he saw Dr. Krishnamurthy at the [facility]. He ordered an MRI back then. The MRI showed a torn disc in L4. Patient hasn't had any surgery on his lower back. Patient states that when he is sitting too long, the pain gets worse. Bending or twisting can make the pain worse. When his lower back doesn't flare up he can typically walk. In the morning his pain does get worse. Patient will take ibuprofen as needed , but it doesn't really help. He does exercises everyday, and it does help a little. Hasn't had any injections in his lower back. Patient doesn't have any diabetes, or blood thinners. Patient doesn't smoke, or does any drugs. Patient doesn't have any balance problems. He has been wearing a back brace over the last 2 to 3 months while at work and when active with benefit. 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 Ortho Exam General General: Yes no acute distress Neurologic: Yes alert and Yes oriented x3 Psychologic: Yes reasonable and appropriate Spine SPINE TESTING CERVICAL THORACIC LUMBAR Musculoskeletal Strength 0=absent - 5=normal Details: Neurological exam of the lower extremities shows 5x5 power. Normal sensations across all dermatomes. No hyperreflexia. No midline or paraspinal tenderness. 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 leg pain M51.360 Additional Codes Intake - Is patient in pain?: No (1126F) Assessment and Plan Assessment and Plan (1) Low back pain: Status: Acute Qualifiers: Chronicity: chronic Back pain laterality: midline Sciatica presence: without sciatica Qualified Code(s): M54.50 - Low back pain, unspecified; G89.29 - Other chronic pain (2) Degenerative disc disease (DDD) of lumbar region with axial back pain without leg pain: Orders: Orders L/S Spine Min 4 Views 12/25/24 M54.9 - Dorsalgia, unspecified Spine Lumbar (Routine) Today M51.362 - Other intervertebral disc degeneration, lumbar region with discogenic back pain and lower extremity pain, M54.50 - Low back pain, unsp (more content not included)... Normal [facility] ABD Complete w/ Elastography on 11-13-2024 ABD Complete w/ Elastography [facility] Imaging Services [address] [place], [place] [address] ABD Complete w/ Elastography MR#: [id number] Acct: [id number] Name: NIKOLAI RIVERA Rep #: [id number] : 1970 M 54 From: Pasha Roberts MD PCP: Dr. Sofy Glez, Status: REG CLI Study: ABD Complete w/ Elastography Date of Exam: 03/09 Exam# [id number] Ordering Dr: Sofy Glez DO PROCEDURE: ABD COMPLETE W/ ELASTOGRAPHY 11/13/2024 REASON FOR EXAM: ELEVATED LIVER ENZYMES TECHNIQUE: Procedure Code: USABDCELPARO Modality: US Procedure: ABD COMPLETE W/ ELASTOGRAPHY FINDINGS: LIVER: Size: Unremarkable Length: 20.1 cm Echotexture: Echogenic. Contour: Normal Lesions: None identified Elastography: EQI Med: 3.8 kPa EQI Med Jenaro: 1.12 m/s IQR/Med: 12 %* GALLBLADDER: Normal COMMON BILE DUCT: Normal 6 mm. PANCREAS: Normal KIDNEYS: The right kidney measures 13.0 x 6.4 x 6.4 cm. The left kidney measures 13.1 x 6.0 x 6.4 cm. Renal parenchymal thicknesses and echotextures are preserved. No hydronephrosis. SPLEEN: 12.4 x 6.4 x 7.0 cm. No mass. AORTA: Normal caliber IVC: Visualized inferior vena cava is unremarkable. PERITONEAL FINDINGS: No ascites identified. US/ABD Complete w/ Elastography IMPRESSION: Diffuse hepatocellular disease. Metavir score F0 Reference Values: SRU <1.37 m/s (5.7kPa): No to mild fibrosis 1.37 m/s - 2.2 m/s: Moderate to severe fibrosis >2.2 m/s (15kPa): Significant fibrosis / cirrhosis METAVIR Score F2 or higher: 1.34 m/s (5.7kPa) F3 or higher: 1.55 m/s (7.3kPa) F4: 1.80 m/s (10kPa) * If the IQR/Med is >30%, the variance in the measurements is a large and the accuracy of the measurement may be in question. Reading Location: [id number] CC: Dr. Sofy Glez DO Field Service Manager: Signed Normal [facility] Coronary Angiography CTon Coronary Angiography CT [facility] Imaging Services [address] [place] [address] 11/13/241814 MR#: [id number] Acct: [id number] Name: NIKOLAI RIVERA Rep #: [id number] : 1970 54 From: Julio Cesar Morneo MD PCP: Dr. Sofy Glez DO Status:REG CLI Y Location: CT Calcium Scoring Date of Study:: 11/13/24 Indications Indications: Hyperlipidemia Coronary Calcium Scoring: High-resolution Computed Tomographic imaging of the chest was performed on [11/13/24], with particular attention paid to the coronary arteries. Images from the examination were analyzed for the presence and extent of coronary artery calcification , using coronary calcium quantification software. The patient tolerated the procedure well and there were no complications. The results of the coronary calcification analysis are provided below. Findings Coronary Artery Left Main (LM): 0 Left Anterior Descending (LAD): 173 Left Circumflex (LCX): 28.9 Right Coronary Artery (RCA): 10.2 Total Agatston Score: 212.1 Percentile Rankin-90 Calcium Scoring Interpretation: Different methods to categorize the overall amount of coronary plaque. Overall amount CAC SIS Visual of coronary plaque P1 Mild -100 <2 1-2 vessels with mild amount of plaque P2 Moderate 101-300 3-4 1-2 vessels with moderate amount, 3 vessels with mild amount of plaque P3 Severe 301-999 5-7 3 vessels with moderate amount, 1 vessel with severe amount of plaque P4 Extensive >1000 >8 2-3 vessels with severe amount of plaque Calcium Score: Moderate: 1-2 vessels w/moderate amt, 3 vessels w/mild amt of plaque Conclusion: 3 vessel with mild plaque present. 11/13/241815 Date Julio Cesar Moreno MD Cosigner Signature (if applicable): Date CC: Dr. Julio Cesar Moreno MD; Dr. Sofy Glez DO Signed Normal [facility] Limited Chest CT Cardiac Onl yon 11-13-[address] Cardiac Only [facility] Imaging Services [address] [place], [place] [address] Limited Chest CT Cardiac Only MR#: [id number] Acct: [id number] Name: NIKOLAI RIVERA Rep #: [id number] : 1970 M 54 From: Rai Plasencia PCP: Dr. Sofy Glez DO Status: REG CLI Study: Limited Chest CT Cardiac Only Date of Exam: Exam# [id number] Ordering Dr: Sofy Glez DO PROCEDURE: LIMITED CHEST CT CARDIAC ONLY 11/13/2024 REASON FOR EXAM: HYPERCHLOESTEREMIA Hypertension. TECHNIQUE: Procedure Code: CTCCTACHLIM Modality: CT Procedure: LIMITED CHEST CT CARDIAC ONLY One or more dose reduction techniques were used (e.g., Automated exposure control, adjustment of the mA and/or kV according to patient size, use of iterative reconstruction technique). RADIATION DOSE SUMMARY: CTDlvol: 12.19 mGy DLP: 243.79 mGycm COMPARISON: None. CT/Limited Chest CT Cardiac Only IMPRESSION: Limited imaging of the lungs demonstrates no acute process. No pleural effusion or pneumothorax is seen in visualized areas. No adenopathy is noted. The visualized upper abdomen demonstrates no significant abnormality. Reading Location: [address] CC: Dr. Sofy Glez DO Field Service Manager: Signed Normal [facility] PSA Total (Rflx Free)on 10-15 PSA, TOTAL Normal [facility] Comment on above: Result Comment: Z12. 5 CODE Performed By: #### L 501.9910, L3110.0100 #### [facility] [address] [place], [address] PSA,Total - Annual Screenon 11-05-2024 PSA,TOT SCREEN 0.83 ng/mL Normal 0.02-4.00 [facility] Comment on above: Order Comment: CODE FOR TEST IS Z12.5 Result Comment: This test was performed using the [employer] tPSA method. Measured values of a patient??sample can vary depending on the testing procedure used. PSA values determined on patient samples by different testing procedures cannot be used interchangeably. If there is a change in PSA assays while monitoring therapy, sequential testing should be performed to confirm baseline values. Performed By: #### L 501.9910, L3110.0100 #### [facility] [address] [place], [address] CBC, Employeeon 09-28-2024 Absolute Lymph 2.33 X10 3/uL Normal 0.83-4.51 [facility] Comment on above: Performed By: #### L 500.2900, L100.0200 #### [facility] [address] [place], [address] Absolute Neut 4.6 X10 3/uL Normal 2.0-7.7 [facility] Comment on above: Result Comment: NO S PECIMEN RECIEVED IN LAB Performed By: #### L 500.2900, L100.0200 #### [facility] [address] [place], [address] Basophils/100 WBC (Bld) 0.5 % Normal 0-1 [facility] Comment on above: Performed By: #### L 500.2900, L100.0200 #### [facility] [address] [place], [address] Eosinophils/100 WBC (Bld) 1.5 % Normal 0-5 [facility] Comment on above: Performed By: #### L 500.2900, L100.0200 #### [facility] [address] [place], [address] Erythrocyte distribution width (RBC) [Ratio] 12.9 % Normal 11.6-14.6 [facility] Comment on above: Result Comment: NO S PECIMEN RECIEVED IN LAB Performed By: #### L 500.2900, L100.0200 #### [facility] [address] [place], [address] Hematocrit (Bld) [Volume fraction] 45.2 % Normal 40-54 [facility] Comment on above: Result Comment: NO S PECIMEN RECIEVED IN LAB Performed By: #### L 500.2900, L100.0200 #### [facility] [address] [place], [address] Hemoglobin (Bld) [Mass/Vol] 15.5 g/dL Normal 13.0-16.5 [facility] Comment on above: Result Comment: NO S PECIMEN RECIEVED IN LAB Performed By: #### L 500.2900, L100.0200 #### [facility] [address] [place], [address] Lymphocytes/100 WBC (Bld) 30.7 % Normal 19-41 [facility] Comment on above: Performed By: #### L 500.2900, L100.0200 #### [facility] [address] [place], [address] MCH (RBC) [Entitic mass] 31.4 pg Normal 27.0-32.0 [facility] Comment on above: Result Comment: NO S PECIMEN RECIEVED IN LAB Performed By: #### L 500.2900, L100.0200 #### [facility] [address] [place], [address] MCHC (RBC) [Mass/Vol] 34.3 g/dL Normal 32-36 [facility] Comment on above: Result Comment: NO S PECIMEN RECIEVED IN LAB Performed By: #### L 500.2900, L100.0200 #### [facility] [address] [place], [address] MCV (RBC) [Entitic vol] 91.7 fL Normal 80-94 [facility] Comment on above: Result Comment: NO S PECIMEN RECIEVED IN LAB Performed By: #### L 500.2900, L100.0200 #### [facility] [address] [place], [address] Monocytes/100 WBC (Bld) 6.7 % Normal 0-10 [facility] Comment on above: Performed By: #### L 500.2900, L100.0200 #### [facility] [address] [place], [address] Neutrophils/100 WBC (Bld) 60.3 % Normal 47-70 [facility] Comment on above: Result Comment: NO S PECIMEN RECIEVED IN LAB Performed By: #### L 500.2900, L100.0200 #### [facility] [address] [place], [address] NRBC # 0.00 10 3/uL Normal 0-5 [facility] Comment on above: Result Comment: NO S PECIMEN RECIEVED IN LAB Performed By: #### L 500.2900, L100.0200 #### [facility] [address] [place], [address] Nucleated RBC (Bld) [#/Vol] 0 10*3/uL Normal 0-5 [facility] Comment on above: Performed By: #### L 500.2900, L100.0200 #### [facility] [address] [place], [address] Platelet mean volume (Bld) [Entitic vol] 9.7 fL Normal 6.2-12.0 [facility] Comment on above: Performed By: #### L 500.2900, L100.0200 #### [facility] [address] [place], [address] Platelets (Bld) [#/Vol] 257 10*3/uL Normal 150-450 [facility] Comment on above: Result Comment: NO S PECIMEN RECIEVED IN LAB Performed By: #### L 500.2900, L100.0200 #### [facility] [address] [place], [address] RBC (Bld) [#/Vol] 4.93 10*6/uL Normal 4.6-6.2 [facility] Comment on above: Result Comment: NO S PECIMEN RECIEVED IN LAB Performed By: #### L 500.2900, L100.0200 #### [facility] [address] [place], [address] RDW SD 42.1 fl Normal 35.1-43.9 [facility] Comment on above: Result Comment: NO S PECIMEN RECIEVED IN LAB Performed By: #### L 500.2900, L100.0200 #### [facility] [address] [place], [address] WBC (Bld) [#/Vol] 7.6 10*3/uL Normal 4.4-11.0 [facility] Comment on above: Result Comment: NO S PECIMEN RECIEVED IN LAB Performed By: #### L 500.2900, L100.0200 #### [facility] [address] [place], [address] Absolute lymphocyte countOrd ered By: HEALTH ASSESSMENT on 09-27-2024 Lymphocytes Auto (Unsp spec) [#/Vol] 2.33 10*3/uL 0.83-4.51 [facility] Absolute neutrophil countOrd ered By: HEALTH ASSESSMENT on 08-15-2025 Neutrophils (Bld) [#/Vol] 4.6 10*3/uL 2.0-7.7 [facility] Absolute nucleated red blood cell countOrdered By: HEALTH ASSESSMENT on 09-27-2024 Nucleated RBC (Bld) [#/Vol] 0.00 10*3/uL 0-5 [facility] Anion gap in Serum or Plasma Ordered By: HEALTH ASSESSMENT on 09-27-2024 Anion gap [Moles/Vol] 14 mmol/L 06-27 [facility] BUN/creatinine ratioOrdered By: HEALTH ASSESSMENT on 09-27-2024 Urea nitrogen/Creatinine [Mass ratio] 21.5 mg/mg High 10- [facility] Bilirubin directOrdered By: HEALTH ASSESSMENT on 09-27-2024 Bilirubin.direct [Mass/Vol] 0.24 mg/dL 0.00-0.30 [facility] Bilirubin, totalOrdered By: HEALTH ASSESSMENT on 09-27-2024 Bilirubin [Mass/Vol] 0.62 mg/dL 0.00-1.30 [facility] Calculated very low density lipoprotein (VLDL) cholesterol measurementOrdered By: HEALTH ASSESSMENT on 09-27-2024 Calculated very low density lipoprotein (VLDL) cholesterol measurement 19 mg/dL [facility] Carbon dioxide, total [Moles /volume] in Central venous bloodOrdered By: HEALTH ASSESSMENT on 09-27-2024 CO2 [Moles/Vol] 22.5 mmol/L 21.0-32.0 [facility] Chloride assayOrdered By: HE ALTH ASSESSMENT on 09-27-2024 Chloride [Moles/Vol] 98 mmol/L 98-108 [facility] Employee Profileon LDH 216 U/L Normal 87-241 [facility] Comment on above: Performed By: #### L 500.2900, L100.0200 #### [facility] [address] [place], [address] Phosphate [Mass/Vol] 3.9 mg/dL Normal 2.7-4.5 [facility] Comment on above: Performed By: #### L 500.2900, L100.0200 #### [facility] [address] [place], [place], [address] URIC 6.4 mg/dL Normal 3.5-7.2 [facility] Comment on above: Result Comment: The drugs N-Acetylcysteine and Metamizole may falsely depress this assay. Performed By: #### L 500.2900, L100.0200 #### [facility] [address] [place], [place], [address] Erythrocyte distribution wid th ratioOrdered By: HEALTH ASSESSMENT on 09-27-2024 Erythrocyte distribution width (RBC) [Ratio] 12.9 % 11.6-14.6 [facility] Erythrocyte distribution wid th standard deviationOrdered By: HEALTH ASSESSMENT on 09-27-2024 Erythrocyte distribution width (RBC) [Ratio] 42.1 fl 35.1-43.9 [facility] Glomerular filtration rate ( GFR) estimation/1.73 sq m using serum, plasma, or whole bOrdered By: HEALTH ASSESSMENT on 09-27-2024 GFR/1.73 sq M.predicted among non-blacks MDRD (S/P/Bld) [Vol rate/Area] 77 mL/min/{1.73_m2} >60 [facility] Comment on above: mL/min/1.73m2 CKD-EP I Creatinine Equation (2020) Hematocrit Auto (Bld) [Volum e fraction]Ordered By: HEALTH ASSESSMENT on 09-27-2024 Hematocrit (Bld) [Volume fraction] 45.2 % 40-54 [facility] Hemoglobin measurementOrdere d By: HEALTH ASSESSMENT on 09-27-2024 Hemoglobin (Bld) [Mass/Vol] 15.5 g/dL 13.0-16.5 [facility] LDL calc ser/plasOrdered By: HEALTH ASSESSMENT on 09-27-2024 Cholesterol in LDL [Mass/Vol] 140 mg/dL [facility] Comment on above: Ijnkpciutf=076-965 m g/dL & Higher Joil=438 mg/dL or greaterFriedwald Equation for LDL-C Laboratory - Chemistry and C hemistry - challengeOrdered By: HEALTH ASSESSMENT on 09-27-2024 AST [Catalytic activity/Vol] 44 U/L High <38 [facility] Lactate dehydrogenase (LDH) measurementOrdered By: HEALTH ASSESSMENT on 09-27-2024 LDH [Catalytic activity/Vol] 216 U/L 87-241 [facility] MCV (mean corpuscular volume ) determinationOrdered By: HEALTH ASSESSMENT on 09-27-2024 MCV (RBC) [Entitic vol] 91.7 fL 80-94 [facility] Mean corpuscular hemoglobin (MCH) determinationOrdered By: HEALTH ASSESSMENT on 09-27-2024 MCH (RBC) [Entitic mass] 31.4 pg 27.0-32.0 [facility] Mean corpuscular hemoglobin concentration (MCHC) determinationOrdered By: HEALTH ASSESSMENT on 09-27-2024 MCHC (RBC) [Mass/Vol] 34.3 g/dL 32-36 [facility] Mean platelet volume determi nationOrdered By: HEALTH ASSESSMENT on 09-27-2024 Platelet mean volume (Bld) [Entitic vol] 9.7 fL 6.2-12.0 [facility] Neutrophil percentageOrdered By: HEALTH ASSESSMENT on 09-27-2024 Neutrophils/100 WBC (Bld) 60.3 % 47-70 [facility] Nucleated red blood cell per centageOrdered By: HEALTH ASSESSMENT on 09-27-2024 Nucleated RBC/100 WBC (Bld) [Ratio] 0 % 0-5 [facility] Platelet countOrdered By: HE ALTH ASSESSMENT on 09-27-2024 Platelets (Bld) [#/Vol] 257 10*3/uL 150-450 [facility] Potassium measurement (mass/ volume)Ordered By: HEALTH ASSESSMENT on 09-27-2024 Potassium (Unsp spec) [Mass/Vol] 4.2 mmol/L 3.3-5.1 [facility] RBC Auto (Bld) [#/Vol]Ordere d By: HEALTH ASSESSMENT on 09-27-2024 RBC (Bld) [#/Vol] 4.93 10*6/uL 4.6-6.2 [facility] Screening total cholesterol/ high density lipoprotein (HDL) cholesterol ratioOrdered By: HEALTH ASSESSMENT on 09-27-2024 Cholesterol.total/Choles terol in HDL [Mass ratio] 3.98 {ratio} [facility] Serum creatinine measurement (mass/volume)Ordered By: HEALTH ASSESSMENT on 09-27-2024 Creatinine [Mass/Vol] 1.13 mg/dL 0.70-1.20 [facility] Serum globulin measurementOr dered By: HEALTH ASSESSMENT on 09-27-2024 Globulin (S) [Mass/Vol] 2.9 g/dL 2.2-4.2 [facility] Serum glucose measurement (m ass/volume)Ordered By: HEALTH ASSESSMENT on 09-27-2024 Glucose [Mass/Vol] 89 mg/dL 70-99 [facility] Serum or plasma alanine still otransferase (ALT) measurementOrdered By: HEALTH ASSESSMENT on 09-27-2024 ALT [Catalytic activity/Vol] 54 U/L High <47 [facility] Serum or plasma albumin eliot urement (mass/volume)Ordered By: HEALTH ASSESSMENT on 09-27-2024 Albumin [Mass/Vol] 4.8 g/dL 3.5-5.0 [facility] Serum or plasma albumin/glob ulin mass ratioOrdered By: HEALTH ASSESSMENT on 09-27-2024 Albumin/Globulin [Mass ratio] 1.7 {ratio} 0.9-2.4 [facility] Serum or plasma alkaline des sphatase measurementOrdered By: HEALTH ASSESSMENT on 09-27-2024 ALP [Catalytic activity/Vol] 40 U/L 40-129 [facility] Serum or plasma calcium eliot urement (mass/volume)Ordered By: HEALTH ASSESSMENT on 09-27-2024 Calcium [Mass/Vol] 9.6 mg/dL 7.6-11.0 [facility] Serum or plasma cholesterol in HDL measurement (mass/volume)Ordered By: HEALTH ASSESSMENT on 09-27-2024 Cholesterol in HDL [Mass/Vol] 53 mg/dL >40 [facility] Comment on above: National Cholesterol Education Program (NCEP) guidelines:<40 mg/dL: Low HDL-cholesterol (major risk factor for CHD)>= 60 mg/dL: High HDL-cholesterol (negative risk factor for CHD)HDL-cholesterol is affected by a number of factors, e.g. smoking, exercise, hormones, sex and age. Serum or plasma cholesterol measurement (mass/volume)Ordered By: HEALTH ASSESSMENT on 09-27-2024 Cholesterol [Mass/Vol] 212 mg/dL High <201 [facility] Comment on above: Cholesterol level, D esirable <200 mg/dLBorderline high cholesterol 200-239 mg/dLHigh cholesterol >=240 mg/dLRecommendations of the NCEP Adult Treatment Panel for the following risk-cutoff thresholds for the [place] population. Serum or plasma urea nitroge n measurement (mass/volume)Ordered By: HEALTH ASSESSMENT on 09-27-2024 Urea nitrogen [Mass/Vol] 24 mg/dL High 4-19 [facility] Serum or plasma uric acid me asurement (mass/volume)Ordered By: HEALTH ASSESSMENT on 09-27-2024 Urate [Mass/Vol] 6.4 mg/dL 3.5-7.2 [facility] Comment on above: The drugs N-Acetylcy steine and Metamizole may falsely depress this assay. Sodium levelOrdered By: [facility] ASSESSMENT on 09-27-2024 Sodium [Moles/Vol] 134 mmol/L 133-145 [facility] Total proteinOrdered By: [facility] ASSESSMENT on 09-27-2024 Protein [Mass/Vol] 7.7 g/dL 5.9-8.4 [facility] Triglycerides measurementOrd ered By: HEALTH ASSESSMENT on 09-27-2024 Triglyceride [Mass/Vol] 95 mg/dL <199 [facility] Comment on above: The drugs N-Acetylcy steine and Metamizole may falsely depress this assay. Normal range: <150 mg/dLBorderline High: 150-199 mg/dLHigh: 200-499 mg/dLVery High: >500 mg/dL White blood cell (WBC) count Ordered By: HEALTH ASSESSMENT on 09-27-2024 WBC (Bld) [#/Vol] 7.6 10*3/uL 4.4-11.0 [facility] Basophil percentageon 2021 Chloride [Moles/Vol] 101 mmol/L 98-107 [facility] Work Phone: [phone] Glucose [Mass/Vol] 93 mg/dL 74-106 [facility] Work Phone: Potassium [Moles/Vol] 4.4 mmol/L 3.5-5.1 [facility] Work Phone: [phone] Sodium [Moles/Vol] 135 mmol/L 136-145 [facility] Work Phone: [phone] Laboratory - Chemistry and C hemistry - challengeon 12-23-2021 CO2 [Moles/Vol] 28.0 mmol/L 21.0-32.0 [facility] Work Phone: Urea nitrogen/Creatinine [Mass ratio] 24.8 mg/mg 10-20 [facility] Work Phone: No Panel Informationon 12-23 Estimated GFR (MDRD) Amer 100 mL/min >60 [facility] Work Phone: Comment on above: GFR Calc Estimated GFR (MDRD) Non-Af Amer 83 mL/min >60 [facility] Work Phone: Comment on above: Non- GFR Calc Serum or plasma calcium eliot urement (mass/volume)on 12-23-2021 Calcium [Mass/Vol] 9.3 mg/dL 8.5-10.1 [facility] Work Phone: Serum or plasma creatinine m easurement (mass/volume)on 12-23-2021 Creatinine [Mass/Vol] 1.01 mg/dL 0.70-1.30 [facility] Work Phone: Comment on above: The validity of the calculated GFR & GFRAA in patients over 70 years has not been determined. Clinical correlation is essential. Serum or plasma urea nitroge n measurement (mass/volume)on 12-23-2021 Urea nitrogen [Mass/Vol] 25 mg/dL 7-18 [facility] Work Phone: Thin prep Papanicolaou smear with manual screeningon 12-23-2021 Thin prep Papanicolaou smear with manual screening 6 5-15 [facility] Work Phone: Vital Signs Date Time Vital Sign Value Performing Clinician Facility 05-25-2022 16:13-0400 Body height 179.07 cm [facility]; [facility] Work Phone: 05-25-2022 16:130400 Body mass index (BMI) [Ratio] 34.25 kg/m2 [facility]; [facility] Work Phone: 05-25-2022 16:13-0400 Body surface area Derived from formula 2.28 m2 [facility]; [facility] Work Phone: 05-25-2022 16:13-0400 Body temperature 96.9 [degF] [facility]; [facility] Work Phone: 05-25-2022 16:13-0400 Body weight 109.83 kg [facility]; [facility] Work Phone: 05-25-2022 16:13-0400 Diastolic blood pressure 80 mm[Hg] [facility]; [facility] Work Phone: Comment on above: Patient Position: Sitting; Cuff Location : Left Arm; Cuff Size: Standard 05-25-2022 16:13-0400 Heart rate 78 /min [facility]; [facility] Work Phone: Comment on above: Pattern: Regular 05-25-2022 16:13-0400 Respiratory rate 16 /min [facility]; [facility] Work Phone: Comment on above: Pattern: Unlabored 05-25-2022 16:13-0400 SaO2% (BldA) [Mass fraction] 95 % [facility]; [facility] Work Phone: Comment on above: Room air 05-25-2022 16:13-0400 Systolic blood pressure 122 mm[Hg] [facility]; [facility] Work Phone: Comment on above: Patient Position: Sitting; Cuff Location : Left Arm; Cuff Size: Standard 12-27-2021 16:15-0500 Body height 179.07 cm [facility]; [facility] Work Phone: 12-27-2021 16:15-0500 Body mass index (BMI) [Ratio] 33.24 kg/m2 [facility]; [facility] Work Phone: 12-27-2021 16:15-0500 Body surface area Derived from formula 2.25 m2 [facility]; [facility] Work Phone: 12-27-2021 16:15-0500 Body temperature 97.1 [degF] [facility]; [facility] Work Phone: 12-27-2021 16:15-0500 Body weight 106.6 kg [facility]; [facility] Work Phone: 12-27-2021 16:15-0500 Diastolic blood pressure 80 mm[Hg] [facility]; [facility] Work Phone: Comment on above: Patient Position: Sitting; Cuff Location : Left Arm; Cuff Size: Standard 12-27-2021 16:15-0500 Heart rate 74 /min [facility]; [facility] Work Phone: Comment on above: Pattern: Regular 12-27-2021 16:15-0500 Respiratory rate 16 /min [facility]; [facility] Work Phone: Comment on above: Pattern: Unlabored 12-27-2021 16:15-0500 SaO2% (BldA) [Mass fraction] 95 % [facility]; [facility] Work Phone: Comment on above: Room air 12-27-2021 16:15-0500 Systolic blood pressure 124 mm[Hg] [facility]; [facility] Work Phone: Comment on above: Patient Position: Sitting; Cuff Location : Left Arm; Cuff Size: Standard 11-22-2021 15:31-0400 Body height 179.07 cm [facility]; [facility] Work Phone: 11-22-2021 15:31-0400 Body mass index (BMI) [Ratio] 33.24 kg/m2 [facility] [employer] [facility]; [facility] Work Phone: 11-22-2021 15:31-0400 Body surface area Derived from formula 2.25 m2 [facility] Chishol[facility]; [facility] Work Phone: 11-22-2021 15:31-0400 Body temperature 97.3 [degF] [facility] Chisholm [facility]; [facility] Work Phone: Comment on above: Method: Infrared 11-22-2021 15:31-0400 Body weight 106.6 kg Brook Chisholm [facility]; [facility] Work Phone: 11-22-2021 15:31-0400 Diastolic blood pressure 88 mm[Hg] Brook Chisholm [facility]; [facility] Work Phone: Comment on above: Patient Position: Sitting; Cuff Location : Left Arm; Cuff Size: Standard 11-22-2021 15:31-0400 Heart rate 81 /min [facility] Chisholm [facility]; [facility] Work Phone: Comment on above: Pattern: Regular 11-22-2021 15:31-0400 Respiratory rate 16 /min Brook Chisholm [facility]; [facility] Work Phone: Comment on above: Pattern: Unlabored 11-22-2021 15:31-0400 SaO2% (BldA) [Mass fraction] 94 % Brook Chisholm [facility]; [facility] Work Phone: Comment on above: Room air 11-22-2021 15:31-0400 Systolic blood pressure 136 mm[Hg] Brook Chisholm [facility]; [facility] Work Phone: Comment on above: Patient Position: Sitting; Cuff Location : Left Arm; Cuff Size: Standard 07-14-2021 09:36-0400 Body height 179.07 cm Brook Chisholm [facility]; [facility] Work Phone: 07-14-2021 09:36-0400 Body mass index (BMI) [Ratio] 33.67 kg/m2 Brook Chisholm [facility]; [facility] Work Phone: 07-14-2021 09:36-0400 Body surface area Derived from formula 2.26 m2 Brook Chisholm [facility]; [facility] Work Phone: 07-14-2021 09:36-0400 Body temperature 97.3 [degF] Brook Chisholm [facility]; [facility] Work Phone: Comment on above: Method: Infrared 07-14-2021 09:36-0400 Body weight 107.96 kg Brook Chisholm [facility]; [facility] Work Phone: 07-14-2021 09:36-0400 Diastolic blood pressure 90 mm[Hg] Brook Chisholm [facility]; [facility] Work Phone: Comment on above: Patient Position: Sitting; Cuff Location : Left Arm; Cuff Size: Standard 07-14-2021 09:36-0400 Heart rate 70 /min Brook Chisholm [facility]; [facility] Work Phone: Comment on above: Pattern: Regular 07-14-2021 09:36-0400 Respiratory rate 18 /min Brook Chisholm [facility]; [facility] Work Phone: Comment on above: Pattern: Unlabored 07-14-2021 09:36-0400 SaO2% (BldA) [Mass fraction] 96 % Brook Chisholm [facility]; [facility] Work Phone: Comment on above: Room air 07-14-2021 09:36-0400 Systolic blood pressure 123 mm[Hg] Brook Chisholm [facility]; [facility] Work Phone: Comment on above: Patient Position: Sitting; Cuff Location : Left Arm; Cuff Size: Standard 04-14-2021 09:26-0500 Body height 179.07 cm Sofy Glez DO Work Phone: [facility]; [facility] Work Phone: Comment on above: reported by pt 04-14-2021 09:26-0500 Body mass index (BMI) [Ratio] 35.65 kg/m2 Sofy Glez DO Work Phone: [facility]; [facility] Work Phone: Comment on above: reported by pt 04-14-2021 09:26-0500 Body surface area Derived from formula 2.31 m2 Sofy Glez DO Work Phone: [facility]; [facility] Work Phone: Comment on above: reported by pt 04-14-2021 09:26-0500 Body weight 114.31 kg Sofy Glez DO Work Phone: [facility]; [facility] Work Phone: Comment on above: reported by pt 04-14-2021 09:26-0500 Diastolic blood pressure 105 mm[Hg] Sofy Glez DO Work Phone: [facility]; [facility] Medicine Work Phone: Comment on above: Patient Position: Sitting; Cuff Location : Left Arm; Cuff Size: Standard reported by pt 04-14-2021 09:26-0500 Systolic blood pressure 165 mm[Hg] Sofy Glez DO Work Phone: [facility]; [facility] Work Phone: Comment on above: Patient Position: Sitting; Cuff Location : Left Arm; Cuff Size: Standard reported by pt 11-02-2020 16:45-0400 Body height 179.07 cm Brook Chisholm [facility]; [facility] Work Phone: 11-02-2020 16:45-0400 Body mass index (BMI) [Ratio] 35.65 kg/m2 Brook Chisholm [facility]; [facility] Work Phone: 11-02-2020 16:45-0400 Body surface area Derived from formula 2.31 m2 Brook Chisholm [facility]; [facility] Work Phone: 11-02-2020 16:45-0400 Body temperature 97.1 [degF] Brook Chisholm CMA [facility]; [facility] Work Phone: Comment on above: Method: Infrared 11-02-2020 16:45-0400 Body weight 114.31 kg Brook Chisholm CMA [facility]; [facility] Work Phone: 11-02-2020 16:45-0400 Diastolic blood pressure 82 mm[Hg] Brook Chisholm CMA [facility]; [facility] Work Phone: Comment on above: Patient Position: Sitting; Cuff Location : Left Arm; Cuff Size: Standard 11-02-2020 16:45-0400 Heart rate 77 /min Brook Chisholm [employer] [facility]; [facility] Work Phone: Comment on above: Pattern: Regular 11-02-2020 16:45-0400 Respiratory rate 16 /min Brook Chisholm [employer] [facility]; [facility] Work Phone: Comment on above: Pattern: Unlabored 11-02-2020 16:45-0400 SaO2% (BldA) [Mass fraction] 97 % Brook Chisholm [facility]; [facility] Work Phone: Comment on above: Room air 11-02-2020 16:45-0400 Systolic blood pressure 118 mm[Hg] Brook Chisholm [employer] [facility]; [facility] Work Phone: Comment on above: Patient Position: Sitting; Cuff Location : Left Arm; Cuff Size: Standard 09-30-2019 16:49-0400 BMI (Body Mass Index) 35.51 kg/m2 Brook Chisholm [facility] Work Phone: 09-30-2019 16:49-0400 Body Temperature 97.1 [degF] Brook Chisholm [facility] Work Phone: Comment on above: Method: Infrared 09-30-2019 16:49-0400 Body weight 113.85 kg Brook Chisholm CMA [facility] Work Phone: 09-30-2019 16:49-0400 BP Diastolic 88 mm[Hg] Brook Chisholm [facility] Work Phone: Comment on above: Patient Position: Sitting; Cuff Location : Left Arm; Cuff Size: Standard 09-30-2019 16:49-0400 BP Systolic 124 mm[Hg] Brook Chisholm [facility] Internal Medicine Work Phone: Comment on above: Patient Position: Sitting; Cuff Location : Left Arm; Cuff Size: Standard 09-30-2019 16:49-0400 BSA (Body Surface Area) 2.31 m2 Brook Chisholm [facility] Internal Medicine Work Phone: 09-30-2019 16:49-0400 Height 179.07 cm Brook Chisholm [facility] Internal Medicine Work Phone: 09-30-2019 16:49-0400 Pulse (Heart Rate) 84 /min Brook Chisholm [facility] Internal Medicine Work Phone: Comment on above: Pattern: Regular 09-30-2019 16:49-0400 Pulse Oximetry 95 % Sofy Glez [facility] Internal Medicine Work Phone: Comment on above: Room air 09-30-2019 16:49-0400 Respiratory Rate 16 /min Brook Chisholm [facility] Internal Medicine Work Phone: Comment on above: Pattern: Unlabored 09-30-2019 16:49-0400 SaO2% (BldA) [Mass fraction] 95 % Brook Chisholm [facility] Internal Medicine; [facility] Work Phone: Comment on above: Room air 11-07-2018 15:47-0400 BMI (Body Mass Index) 34.94 kg/m2 KWADWO Cali LPN [facility] Internal Medicine Work Phone: 11-07-2018 15:47-0400 Body Temperature 97.9 [degF] KWADWO Cali LPN [facility] Internal Medicine Work Phone: Comment on above: Method: Temporal 11-07-2018 15:47-0400 Body weight 112.04 kg KWADWO Cali LPN [facility] Internal Medicine Work Phone: 11-07-2018 15:47-0400 BP Diastolic 78 mm[Hg] KWADWO Cali LPN [facility] Internal Medicine Work Phone: Comment on above: Patient Position: Sitting; Cuff Location : Left Arm; Cuff Size: Standard 11-07-2018 15:47-0400 BP Systolic 124 mm[Hg] KWADWO Cali LPN [facility] Internal Medicine Work Phone: Comment on above: Patient Position: Sitting; Cuff Location : Left Arm; Cuff Size: Standard 11-07-2018 15:47-0400 BSA (Body Surface Area) 2.3 m2 KWADWO Cali LPN [facility] Internal Medicine Work Phone: 11-07-2018 15:47-0400 Height 179.07 cm KWADWO Cali LPN [facility] Internal Medicine Work Phone: 11-07-2018 15:47-0400 Pulse (Heart Rate) 74 /min KWADWO Cali LPN [facility] Internal Medicine Work Phone: Comment on above: Pattern: Regular 11-07-2018 15:47-0400 Pulse Oximetry 98 % Sofy Glez [facility] Internal Medicine Work Phone: Comment on above: Room air 11-07-2018 15:47-0400 Respiratory Rate 20 /min KWADWO Cali LPN [facility] Internal Medicine Work Phone: Comment on above: Pattern: Unlabored 11-07-2018 15:47-0400 SaO2% (BldA) [Mass fraction] 98 % [facility] Work Phone: Comment on above: Room air 11-06-2017 15:45-0400 BMI (Body Mass Index) 35.08 kg/m2 Brook Chisholm [facility] Work Phone: 11-06-2017 15:45-0400 Body Temperature 97.1 [degF] Brook Chisholm [facility] Work Phone: Comment on above: Method: Temporal 11-06-2017 15:45-0400 Body weight 112.49 kg Brook Chisholm [facility] Internal Medicine Work Phone: 11-06-2017 15:45-0400 BP Diastolic 80 mm[Hg] Brook Chisholm [facility] Work Phone: Comment on above: Patient Position: Sitting; Cuff Location : Left Arm; Cuff Size: Standard 11-06-2017 15:45-0400 BP Systolic 118 mm[Hg] Brook Chisholm [facility] Internal Medicine Work Phone: Comment on above: Patient Position: Sitting; Cuff Location : Left Arm; Cuff Size: Standard 11-06-2017 15:45-0400 BSA (Body Surface Area) 2.3 m2 Brook Chisholm [facility] Internal Medicine Work Phone: 11-06-2017 15:45-0400 Height 179.07 cm Brook Chisholm [facility] Internal Medicine Work Phone: 11-06-2017 15:45-0400 Pulse (Heart Rate) 73 /min Brook Chisholm [facility] Internal Medicine Work Phone: Comment on above: Pattern: Regular 11-06-2017 15:45-0400 Pulse Oximetry 97 % Sofy Portilloon [facility] Internal Medicine Work Phone: Comment on above: Room air 11-06-2017 15:45-0400 Respiratory Rate 18 /min Brook Chisholm [facility] Internal Medicine Work Phone: Comment on above: Pattern: Unlabored 11-06-2017 15:45-0400 SaO2% (BldA) [Mass fraction] 97 % Brook Chisholm [facility]; [facility] Work Phone: Comment on above: Room air 11-02-2016 15:56-0400 BMI (Body Mass Index) 34.37 kg/m2 Agnes Prado [facility] Internal Medicine Work Phone: 11-02-2016 15:56-0400 Body Temperature 97.2 [degF] Agnes Prado [facility] Internal Medicine Work Phone: Comment on above: Method: Temporal 11-02-2016 15:56-0400 Body weight 110.22 kg Agnes Prado [facility] Internal Medicine Work Phone: 11-02-2016 15:56-0400 BP Diastolic 80 mm[Hg] Agnes Prado [facility] Internal Medicine Work Phone: Comment on above: Patient Position: Sitting; Cuff Location : Left Arm; Cuff Size: Standard 11-02-2016 15:56-0400 BP Systolic 122 mm[Hg] Agnes Prado [facility] Internal Medicine Work Phone: Comment on above: Patient Position: Sitting; Cuff Location : Left Arm; Cuff Size: Standard 11-02-2016 15:56-0400 BSA (Body Surface Area) 2.28 m2 Agnes Prado [facility] Work Phone: 11-02-2016 15:56-0400 Height 179.07 cm Agnes Prado [facility] Internal Medicine Work Phone: 11-02-2016 15:56-0400 Pulse (Heart Rate) 81 /min Agnes Prado [facility] Internal Medicine Work Phone: Comment on above: Pattern: Regular 11-02-2016 15:56-0400 Pulse Oximetry 98 % Sofy Amaris [facility] Internal Medicine Work Phone: Comment on above: Room air 11-02-2016 15:56-0400 Respiratory Rate 16 /min Agnes Prado [facility] Internal Medicine Work Phone: Comment on above: Pattern: Unlabored 11-02-2016 15:56-0400 SaO2% (BldA) [Mass fraction] 98 % Agnes Prado [facility]; [facility] Work Phone: Comment on above: Room air 11-11-2015 14:30-0400 BMI (Body Mass Index) 34.44 kg/m2 Brit Reed RN [facility] Work Phone: 11-11-2015 14:30-0400 Body weight 110.45 kg Brit Reed RN [facility] Work Phone: 11-11-2015 14:30-0400 BP Diastolic 78 mm[Hg] Brit Reed RN [facility] Work Phone: Comment on above: Patient Position: Sitting; Cuff Location : Left Arm; Cuff Size: Large 11-11-2015 14:30-0400 BP Systolic 122 mm[Hg] Brit Reed RN [facility] Work Phone: Comment on above: Patient Position: Sitting; Cuff Location : Left Arm; Cuff Size: Large 11-11-2015 14:30-0400 BSA (Body Surface Area) 2.28 m2 Brit Reed RN [facility] Work Phone: 11-11-2015 14:30-0400 Height 179.07 cm Brit Reed RN [facility] Work Phone: 11-11-2015 14:30-0400 Pulse (Heart Rate) 77 /min Brit Reed RN [facility] Work Phone: Comment on above: Pattern: Regular 11-11-2015 14:30-0400 Pulse Oximetry 95 % Sofy Glez [facility] Internal Medicine Work Phone: Comment on above: Room air 11-11-2015 14:30-0400 SaO2% (BldA) [Mass fraction] 95 % Brit Reed RN [facility]; [facility] Work Phone: Comment on above: Room air 11-10-2014 15:57-0400 BMI (Body Mass Index) 33.81 kg/m2 Reannachika Marin [facility] Internal Medicine Work Phone: 11-10-2014 15:57-0400 Body Temperature 97.2 [degF] [facility] Work [facility]: Comment on above: Method: Tympanic 11-10-2014 15:57-0400 Body weight 108.41 [facility] Work Phone: 11-10-2014 15:57-0400 BP Diastolic 64 mm[Hg] [facility] Work Phone: Comment on above: Patient Position: Sitting; Cuff Location : Left Arm; Cuff Size: Standard 11-10-2014 15:57-0400 BP Systolic 122 mm[Hg] [facility] Work Phone: Comment on above: Patient Position: Sitting; Cuff Location : Left Arm; Cuff Size: Standard 11-10-2014 15:57-0400 BSA (Body Surface Area) 2.26 m2 Reanna Tomas [facility] Work Phone: 11-10-2014 15:57-0400 Height 179.07 cm Reanna Marin [facility] Work Phone: 11-10-2014 15:57-0400 Pulse (Heart Rate) 68 /min Reanna Marin [facility] Work Phone: Comment on above: Pattern: Regular 11-10-2014 15:57-0400 Pulse Oximetry 98 % Sofy Glez [facility] Work Phone: Comment on above: Room air 11-10-2014 15:57-0400 Respiratory Rate 18 /min Reanna Marin [facility] Internal Medicine Work Phone: Comment on above: Pattern: Unlabored 11-10-2014 15:57-0400 SaO2% (BldA) [Mass fraction] 98 % Reanna Marin [facility]; [facility] Work Phone: Comment on above: Room air 11-10-2014 15:49-0400 BMI (Body Mass Index) 33.24 kg/m2 Reanna Marin [facility] Internal Medicine Work Phone: 11-10-2014 15:49-0400 Body weight 106.6 kg Reanna Marin [facility] Internal Medicine Work Phone: 11-10-2014 15:49-0400 BSA (Body Surface Area) 2.25 m2 Reanna Marin [facility] Internal Medicine Work Phone: 11-10-2014 15:49-0400 Height 179.07 cm Reanna Marin [facility] Work Phone: 08-11-2014 11:20-0400 BMI (Body Mass Index) 33.24 kg/m2 KWADWO Cali LPN [facility] Work Phone: 08-11-2014 11:20-0400 Body Temperature 97.6 [degF] KWADWO Cali LPN [facility] Work Phone: Comment on above: Method: Temporal 08-11-2014 11:20-0400 Body weight 106.6 kg KWADWO Cali LPN [facility] Work Phone: 08-11-2014 11:20-0400 BP Diastolic 78 mm[Hg] KWADWO Cali LISA [facility] Internal Medicine Work Phone: Comment on above: Patient Position: Sitting; Cuff Location : Left Arm; Cuff Size: Standard 08-11-2014 11:20-0400 BP Systolic 120 mm[Hg] KWADWO Cali LISA [facility] Internal Medicine Work Phone: Comment on above: Patient Position: Sitting; Cuff Location : Left Arm; Cuff Size: Standard 08-11-2014 11:20-0400 BSA (Body Surface Area) 2.25 m2 KWADWO Cali LISA [facility] Internal Medicine Work Phone: 08-11-2014 11:20-0400 Height 179.07 cm KWADWO Cali LISA [facility] Internal Medicine Work Phone: 08-11-2014 11:20-0400 Pulse (Heart Rate) 64 /min KWADWO Cali LISA [facility] Internal Medicine Work Phone: Comment on above: Pattern: Regular 08-11-2014 11:20-0400 Pulse Oximetry 98 % Sofy Amaris [facility] Internal Medicine Work Phone: Comment on above: Room air 08-11-2014 11:20-0400 Respiratory Rate 18 /min KWADWO Cali LISA [facility] Internal Medicine Work Phone: Comment on above: Pattern: Unlabored 08-11-2014 11:20-0400 SaO2% (BldA) [Mass fraction] 98 % KWADWOCELESTE Cali LPN [facility]; [facility] Work Phone: Comment on above: Room air 10-28-2013 16:10-0400 BMI (Body Mass Index) 33.7 kg/m2 [facility] Work Phone: 10-28-2013 16:10-0400 Body Temperature 98 [degF] Reanna Tomas [facility] Internal Medicine Work Phone: Comment on above: Method: Oral 10-28-2013 16:10-0400 Body weight 108.07 kg Reanna Marin [facility] Internal Medicine Work Phone: 10-28-2013 16:10-0400 BP Diastolic 82 mm[Hg] Reanna Marin [facility] Internal Medicine Work Phone: Comment on above: Patient Position: Sitting; Cuff Location : Left Arm; Cuff Size: Standard 10-28-2013 16:10-0400 BP Systolic 120 mm[Hg] Reanna Marin [facility] Internal Medicine Work Phone: Comment on above: Patient Position: Sitting; Cuff Location : Left Arm; Cuff Size: Standard 10-28-2013 16:10-0400 BSA (Body Surface Area) 2.26 m2 Reanna Marin [facility] Internal Medicine Work Phone: 10-28-2013 16:10-0400 Height 179.07 cm Reanna Marin [facility] Internal Medicine Work Phone: 10-28-2013 16:10-0400 Pulse (Heart Rate) 77 /min Reanna Marin [facility] Internal Medicine Work Phone: Comment on above: Pattern: Regular 10-28-2013 16:10-0400 Pulse Oximetry 98 % Sofy Glez [facility] Internal Medicine Work Phone: Comment on above: Room air 10-28-2013 16:10-0400 Respiratory Rate 18 /min Reanna Marin [facility] Internal Medicine Work Phone: Comment on above: Pattern: Unlabored 10-28-2013 16:10-0400 SaO2% (BldA) [Mass fraction] 98 % Reanna Marin [facility]; [facility] Work Phone: Comment on above: Room air 11-05-2012 16:58-0400 BMI (Body Mass Index) 31.97 kg/m2 Kierra A Fast DO Work Phone: [facility] Work Phone: 11-05-2012 16:58-0400 Body Temperature 97.2 [degF] Kierra A Fast DO Work Phone: [facility] Work Phone: Comment on above: Method: Oral 11-05-2012 16:58-0400 Body weight 102.51 kg Kierra A Fast DO Work Phone: [facility] Work Phone: 11-05-2012 16:58-0400 BP Diastolic 82 mm[Hg] Kierra A Fast DO Work Phone: [facility] Work Phone: Comment on above: Patient Position: Sitting; Cuff Location : Left Arm; Cuff Size: Large 11-05-2012 16:58-0400 BP Systolic 128 mm[Hg] Kierra A Fast DO Work Phone: [facility] Work Phone: Comment on above: Patient Position: Sitting; Cuff Location : Left Arm; Cuff Size: Large 11-05-2012 16:58-0400 BSA (Body Surface Area) 2.21 m2 Kierra A Fast DO Work Phone: [facility] Work Phone: 11-05-2012 16:58-0400 Height 179.07 cm Kierra A Fast DO Work Phone: [facility] Work Phone: 11-05-2012 16:58-0400 Pulse (Heart Rate) 82 /min Kierra A Fast DO Work Phone: [facility] Work Phone: Comment on above: Pattern: Regular 11-05-2012 16:58-0400 Respiratory Rate 16 /min Kierra A Fast DO Work Phone: [facility] Work Phone: Comment on above: Pattern: Unlabored 11-01-2011 08:30-0400 BMI (Body Mass Index) 32.55 kg/m2 KWADWO Cali LPN [facility] Internal Medicine Work Phone: 11-01-2011 08:30-0400 Body Temperature 97.8 [degF] KWADWO Cali LPN [facility] Work Phone: Comment on above: Method: Oral 11-01-2011 08:30-0400 Body weight 108.86 kg KWADWO Cali LPN [facility] Internal Medicine Work Phone: 11-01-2011 08:30-0400 BP Diastolic 84 mm[Hg] KWADWO Cali LPN [facility] Internal Medicine Work Phone: Comment on above: Patient Position: Sitting; Cuff Location : Left Arm; Cuff Size: Standard 11-01-2011 08:30-0400 BP Systolic 122 mm[Hg] KWADWO Cali LPN [facility] Internal Medicine Work Phone: Comment on above: Patient Position: Sitting; Cuff Location : Left Arm; Cuff Size: Standard 11-01-2011 08:30-0400 BSA (Body Surface Area) 2.3 m2 KWADWO Cali [employer] [facility] Internal Medicine Work Phone: 11-01-2011 08:30-0400 Height 182.88 cm KWADWO Cali [facility] Internal Medicine Work Phone: 11-01-2011 08:30-0400 Pulse (Heart Rate) 64 /min KWADWO Cali [facility] Internal Medicine Work Phone: Comment on above: Pattern: Regular 11-01-2011 08:30-0400 Respiratory Rate 18 /min KWADWO Cali [employer] [facility] Internal Medicine Work Phone: Comment on above: Pattern: Unlabored 11-11-2009 14:01-0400 Body Temperature 98.5 [degF] Sofymarisa Glez [facility] Internal Medicine Work Phone: Comment on above: repeat bp 122/74 11-11-2009 14:01-0400 Body weight 108.41 kg Sofymarisa Glez [facility] Internal Medicine Work Phone: Comment on above: repeat bp 122/74 11-11-2009 14:01-0400 BP Diastolic 66 mm[Hg] Sofy Glez [facility] Internal Medicine Work Phone: Comment on above: Patient Position: Sitting; Cuff Location : Left Arm; Cuff Size: Large repeat bp 122/74 11-11-2009 14:01-0400 BP Systolic 126 mm[Hg] Sofy Glez [facility] Internal Medicine Work Phone: Comment on above: Patient Position: Sitting; Cuff Location : Left Arm; Cuff Size: Large repeat bp 122/74 11-11-2009 14:01-0400 Pulse (Heart Rate) 100 /min Sofy Glez [facility] Work Phone: Comment on above: Pattern: Regular repeat bp 122/74 11-11-2009 14:01-0400 Pulse Oximetry 92 % Sofy Glez [facility] Internal Medicine Work Phone: Comment on above: Room air repeat bp 122/74 11-11-2009 14:01-0400 Respiratory Rate 18 /min Sofy Glez [facility] Internal Medicine Work Phone: Comment on above: Pattern: Unlabored repeat bp 122/74 11-11-2009 14:01-0400 SaO2% (BldA) [Mass fraction] 92 % Sofy Glez DO Work Phone: [facility]; [facility] Work Phone: Comment on above: Room air repeat bp 122/74 08-31-2009 11:27-0400 Body weight 107.05 kg KWADWO Cali LISA [facility] Internal Medicine Work Phone: 08-31-2009 11:27-0400 BP Diastolic 88 mm[Hg] KWADWO Cali [employer] [facility] Internal Medicine Work Phone: Comment on above: Patient Position: Sitting; Cuff Location : Left Arm; Cuff Size: Standard 08-31-2009 11:27-0400 BP Systolic 126 mm[Hg] KWADWO Cali LISA [facility] Work Phone: Comment on above: Patient Position: Sitting; Cuff Location : Left Arm; Cuff Size: Standard 08-31-2009 11:27-0400 Pulse (Heart Rate) 68 /min KWADWOCELESTE Cali LPN [facility] Internal Medicine Work Phone: Comment on above: Pattern: Regular 08-31-2009 11:27-0400 Respiratory Rate 18 /min KWADWO Cali LISA [facility] Internal Medicine Work Phone: Comment on above: Pattern: Unlabored 05-13-2008 08:06-0400 Body weight 109.32 kg KWADWO Cali LISA [facility] Internal Medicine Work Phone: 05-13-2008 08:06-0400 BP Diastolic 88 mm[Hg] KWADWO Cali [employer] [facility] Work Phone: Comment on above: Patient Position: Sitting; Cuff Location : Left Arm; Cuff Size: Standard 05-13-2008 08:06-0400 BP Systolic 136 mm[Hg] [facility] Work Phone: Comment on above: Patient Position: Sitting; Cuff Location : Left Arm; Cuff Size: Standard 05-13-2008 08:06-0400 Head Circumference 0 cm Sofy Glez [facility] Internal Medicine Work Phone: 05-13-2008 08:06-0400 Head Occipital-frontal circumference 0 cm KWADWO Cali [facility] Medicine; [facility] Work Phone: 05-13-2008 08:06-0400 Height 0 cm KWADWO Cali [facility] Internal Medicine Work Phone: 05-13-2008 08:06-0400 Pulse (Heart Rate) 64 /min KWADWO Cali [facility] Internal Medicine Work Phone: Comment on above: Pattern: Regular 05-13-2008 08:06-0400 Respiratory Rate 16 /min KWADWO Cali [facility] Internal Medicine Work Phone: Comment on above: Pattern: Unlabored 11-06-2007 07:56-0400 Body Temperature 98.2 [degF] KWADWO Cali [facility] Internal Medicine Work Phone: Comment on above: Method: Oral 11-06-2007 07:56-0400 Body weight 112.49 kg KWADWO Cali [facility] Internal Medicine Work Phone: 11-06-2007 07:56-0400 BP Diastolic 80 mm[Hg] KWADWO Cali [facility] Internal Medicine Work Phone: Comment on above: Patient Position: Sitting; Cuff Location : Left Arm; Cuff Size: Standard 11-06-2007 07:56-0400 BP Systolic 120 mm[Hg] KWADWO Cali [facility] Internal Medicine Work Phone: Comment on above: Patient Position: Sitting; Cuff Location : Left Arm; Cuff Size: Standard 11-06-2007 07:56-0400 Head Circumference 0 cm Sofy Glez [facility] Internal Medicine Work Phone: 11-06-2007 07:56-0400 Head Occipital-frontal circumference 0 cm KWADWO Cali [employer] [facility]; [facility] Work Phone: 11-06-2007 07:56-0400 Height 0 cm KWADWO Cali [employer] [facility] Work Phone: 11-06-2007 07:56-0400 Pulse (Heart Rate) 70 /min KWADWO Cali [facility] Work Phone: Comment on above: Pattern: Regular 11-06-2007 07:56-0400 Respiratory Rate 16 /min KWADWO Cali YARD SPECIALIST [facility] Work Phone: Comment on above: Pattern: Unlabored 04-24-2007 08:45-0400 Body Temperature 97.6 [degF] KWADWO Cali [facility]ARD SPECIAL[facility] Work Phone: Comment on above: Method: Oral 04-24-2007 08:45-0400 Body weight 0 kg KWADWO Cali YARD SPECIALIST [facility] Work Phone: 04-24-2007 08:45-0400 BP Diastolic 84 mm[Hg] KWADWO Cali [facility] Work Phone: Comment on above: Patient Position: Sitting; Cuff Location : Left Arm; Cuff Size: Standard 04-24-2007 08:45-0400 BP Systolic 136 mm[Hg] KWADWO Cali YARD SPECIALIST [facility] Work Phone: Comment on above: Patient Position: Sitting; Cuff Location : Left Arm; Cuff Size: Standard 04-24-2007 08:45-0400 Head Circumference 0 cm Sofy Glez [facility] Work Phone: 04-24-2007 08:45-0400 Head Occipital-frontal circumference 0 cm KWADWO Cali [facility] Work Phone: 04-24-2007 08:45-0400 Height 0 cm KWADWO Cali YARD SPECIALIST [facility] Work Phone: 04-24-2007 08:45-0400 Pulse (Heart Rate) 70 /min KWADWO Cali [facility] Work Phone: Comment on above: Pattern: Regular 04-24-2007 08:45-0400 Respiratory Rate 18 /min KWADWO Cali LPN [facility] Work Phone: Comment on above: Pattern: Unlabored Encounters Encounter Date Encounter Type Care Provider Facility Start: 12-26-2024 End: 12-26-2024 ambulatory Jolie James Facility:[facility] Start: 12-25-2024 ambulatory Jolie Fulk Facility:[facility] Start: 11-13-2024 ambulatory Julio Cesarshayy Moreno Facility:[facility] Start: 11-13-[address] Sofy Glez DO -Cat Scan [facility] Work Phone: Start: 11-13-2024 End: 11-13-2024 ambulatory Sofy Glez Facility:[facility] Start: 11-05-2024 End: 11-05-[address] Sofy Glez DO Work Phone: [facility] [place] Start: 11-05-2024 End: 11-05-[address] Sofy Glez DO [facility] [place] Work Phone: Start: 11-05-2024 End: 11-05-2024 ambulatory Sofy Glez Facility:[facility] Start: 09-27-2024 Registered [facility] -[facility] [place] Work Phone: Start: 09-27-2024 ambulatory Sofy Amaris Facilit y:[facility] Start: 05-26-2022 ambulatory Sofy Glez DO [facility] Start: 05-25-2022 End: 05-25-2022 Office outpatient visit 15 minutes Sofy Amaris DO Work Phone: [facility] Start: 12-27-2021 End: 12-27-2021 Office outpatient visit 10 minutes Sofy Amaris DO Work Phone: [facility] Start: 12-23-2021 End: 12-23-2021 ambulatory [facility] Work Phone: Start: 12-23-2021 End: 12-23-2021 Patient encounter procedure [facility] Start: 11-22-2021 End: 11-22-2021 Office outpatient visit 10 minutes Sofy Amaris DO Work Phone: [facility] Start: 08-06-2021 End: 08-06-2021 Phone Encounter Sofy Amaris DO Work Phone: [facility] Start: 07-14-2021 End: 07-14-2021 Office outpatient visit 15 minutes Sofy Amaris DO Work Phone: [facility] Start: 04-14-2021 End: 04-14-2021 Office outpatient visit 10 minutes Sofy Amaris DO Work Phone: [facility] Start: 02-22-2021 End: 02-22-2021 Phone Encounter Sofy Amaris DO Work Phone: [facility] Start: 12-23-2020 End: 12-23-2020 Annotation/Addendum Sofy Amaris DO Work Phone: [facility] Start: 11-02-2020 End: 11-02-2020 Patient encounter status Sofy Amaris DO Work Phone: [facility] Work Phone: Start: 11-02-2020 End: 11-02-2020 Periodic preventive med est patient 40-64yrs Sofy Amaris DO Work Phone: [facility] Start: 09-30-2019 End: 09-30-2019 Patient encounter procedure Brook Chisholm CMA [facility] Work Phone: Start: 09-30-2019 End: 09-30-2019 Periodic preventive med est patient 40-64yrs Sofy Amaris [facility] Start: 11-07-2018 End: 11-07-2018 Patient encounter procedure Sofy Amaris DO Work Phone: [facility] Start: 11-07-2018 End: 11-07-2018 Periodic preventive med est patient 40-64yrs Sofy Amaris [facility] Start: 11-06-2017 End: 11-06-2017 Periodic preventive med est patient 40-64yrs Sofy Glez [facility] Start: 11-06-2017 End: 11-06-2017 Physical examination Sofy Glez DO Work Phone: [facility] Work Phone: Start: 02-16-2017 End: 02-16-2017 Phone Encounter Sofy Glez [facility] Start: 11-02-2016 End: 11-02-2016 Patient encounter procedure Sofy Glez DO Work Phone: [facility] Start: 11-02-2016 End: 11-02-2016 Periodic preventive med est patient 40-64yrs Sofy Glez [facility] Start: 11-11-2015 End: 11-11-2015 Periodic preventive med est patient 40-64yrs Sofy Glez [facility] Start: 11-11-2015 End: 11-11-2015 Physical examination Brit Reed RN [facility] Work Phone: Comment on above: filled out paper. merrill ting better and exercise. Start: 11-10-2014 End: 11-10-2014 Office outpatient visit 15 minutes Sofy Glez [facility] Start: 11-10-2014 End: 11-10-2014 Patient encounter status Sofy Glez DO Work Phone: [facility] Start: 08-11-2014 End: 08-11-2014 Office outpatient visit 15 minutes Sofy Glez [facility] Start: 10-28-2013 End: 10-28-2013 Office outpatient visit 15 minutes Sofy Glez [facility] Start: 01-15-2013 End: 01-15-2013 Lab Order Sofy Glez [facility] Start: 11-05-2012 End: 11-05-2012 Patient encounter procedure Sofy Glez [facility] Start: 11-01-2011 End: 11-02-2011 Patient encounter procedure Sofy Glez [facility] Start: 11-01-2011 End: 11-02-2011 Patient encounter status Sofy Glez DO Work Phone: [facility] Start: 11-11-2009 End: 11-11-2009 Patient encounter procedure Sofy Glez [facility] Start: 08-31-2009 End: 09-10-2009 Patient encounter procedure Sofy Glez [facility] Start: 05-13-2008 End: 05-13-2008 Patient encounter procedure Sofy Glez [facility] Start: 11-06-2007 End: 11-06-2007 Patient encounter procedure Sofy Glez [facility] Start: 09-24-2007 End: 09-24-2007 Phone Encounter Sofy Glez [facility] Start: 04-24-2007 End: 04-24-2007 Patient encounter procedure Sofy Glez [facility] Start: 09-22-2006 End: 09-22-2006 Historical Summary Sofy Glez [facility] Patient encounter procedure Brook Chisholm [facility] Work Phone: Patient encounter procedure Melissa Meyer [facility] Work Phone: Patient encounter procedure Brook Chisholm [facility] Work Phone: Patient encounter procedure Romain Walker [facility] Work Phone: Patient encounter procedure Romain Walker [facility] Work Phone: Patient encounter status Brook Chisholm [facility] Work Phone: Procedures Date Procedure Procedure Detail Performing Clinician Start: 11-13-2024 CT angiography of coronary arteries Dr. Sofy Glez DO Work Phone: Start: 11-05-2024 Pro[address] specific antigen measurement Dr. Sofy Glez DO Work Phone: Comment on above: This test was perfor med using the [employer] tPSA method. Measured values of a patient sample can vary depending on the testing procedure used. PSA values determined on patient samples by different testing procedures cannot be used interchangeably. If there is a change in PSA assays while monitoring therapy, sequential testing should be performed to confirm baseline values. Start: 09-27-[address] Sofy Glez DO Work Phone: Start: 02-22-2021 End: 10-21-2021 Colonoscopy Report Comments: See Note; NOTES: [facility] Medical Records Department [address] [place] [address] Colonoscopy Report MR#: [id number] Acct: [id number] Name: NIKOLAI RIVERA Rep #: [id number] : 1970 50 From: Julien Mcdaniels DO PCP: Dr. Sofy Glez DO [place] [facility] [place] Name: Nikolai Rivera Procedure Date: 02/22/2021 6:28 AM Date of : 1970 Age: 50 Procedure: Colonoscopy Indications: Screening for colorectal malignant neoplasm Providers: Julien Mcdaniels DO Medicines: See the Anesthesia note for documentation of the administered medications Patient Profile: Last Colonoscopy: date unknown. Unable to locate last colonoscopy report. Last Colonoscopy: none. The patient's first colonoscopy is today. Complications: No immediate complications. Procedure: Pre-Anesthesia Assessment: - Prior to the procedure, a History and Physical was performed, and patient medications and allergies were reviewed. The patient is competent. The risks and benefits of the procedure and the sedation options and risks were discussed with the patient. All questions were answered and informed consent was obtained. Patient identification and proposed procedure were verified by the physician in the pre-procedure area. Mental Status Examination: alert and oriented. Airway Examination: normal oropharyngeal airway and neck mobility. Respiratory Examination: clear to auscultation. CV Examination: normal. Prophylactic Antibiotics: The patient does not require prophylactic antibiotics. Prior Anticoagulants: The patient has taken no previous anticoagulant or antiplatelet agents. After reviewing the risks and benefits, the patient was deemed in satisfactory condition to undergo the procedure. The anesthesia plan was to use moderate sedation / analgesia (conscious sedation). Immediately prior to administration of medications, the patient was re-assessed for adequacy to receive sedatives. The heart rate, respiratory rate, oxygen saturations, blood pressure, adequacy of pulmonary ventilation, and response to care were monitored throughout the procedure. The physical status of the patient was re-assessed after the procedure. After I obtained informed consent, the scope was passed under direct vision. Throughout the procedure, the patient's blood pressure, pulse, and oxygen saturations were monitored continuously. The colonoscope was introduced through the anus and advanced to the cecum, identified by appendiceal orifice and ileocecal valve. The ileocecal valve, appendiceal orifice, and rectum were photographed. Moderate Sedation: Moderate (conscious) sedation was personally administered by an anesthesia professional. The following parameters were monitored: oxygen saturation, heart rate, blood pressure, respiratory rate, EKG, adequacy of pulmonary ventilation, and response to care. Total physician intraservice time was 15 minutes. Scope In: 6:46:37 AM Scope Withdrawal Time 0 hours 12 minutes 39 seconds Scope Out: 7:03:05 AM Total Procedure Duration Time 0 hours 16 minutes 28 seconds Findings: The perianal and digital rectal examinations were normal. The entire examined colon appeared normal on direct and retroflexion views. Impression: - The entire examined colon is normal on direct and retroflexion views. - No specimens collected. Recommendation: - Discharge patient to home. - Resume previous diet. - Continue present medications. - Repeat colonoscopy in 10 years for screening purposes. - Return to GI office PRN. Procedure Code(s): --- Professional --- 88583, Colonoscopy, flexible; diagnostic, including collection of specimen(s) by brushing or washing, when performed (separate procedure) CPT copyright 2017 [employer]. All rights reserved. The codes documented in this report are preliminary and upon firer glost kiln review may be revised to meet current compliance requirements. Julien Mcdaniels DO 02/22/2021 7:08:29 AM This report has been signed electronically. Number of Addenda: 0 Note Initiated On: 02/22/2021 6:28 AM 02/22/21 0708 Date Julien Mcdaniles DO Cosigner Signature: Date (if indicated) CC: Dr. Sofy Glez DO; Julien Mcdaniels DO Date Dictated: 02/22/21 0628 Date Transcribed: Field Service Manager: KATIE Signed Sofy Glez DO Work Phone: Start: 02-22-2021 End: 02-22-2021 History and Physical Exam Comments: See Note; NOTES: [facility] Medical Records Department [address] [place] [address] History Physical Exam 02/22/21 0632 MR#: [id number] Acct: [id number] Name: NIKOLAI RIVERA Rep #: [id number] : 1970 50 From: Julien Mcdaniels DO PCP: Dr. Sofy Glez DO Status:[facility] Location: [place] [address] History and Physical Date of Admission: 02/22/21 Nikolai is a 50-year-old gentleman who arrives here for screening colonoscopy. He has never had a colonoscopy in the past. He has no significant past medical history. He does not have any problems with his bowels. He is not having any bloating, abdominal pain or GI bleeding. His weight has been stable. He does not take any medicines on a daily basis. He has no known drug allergies. Overall he is in a really good state of health. Past medical history -negative Past surgical history-negative Allergies-no known drug allergies Review of systems-all 16 review of systems except those pertinent positives mentioned HPI. Social history-negative alcohol and drugs Physical examination-blood pressure is 144/93, pulse is 57, respiratory 16, temperature is 98, satting 98% on room air Generally no acute distress HEENT-normocephalic atraumatic Neck-no JVD or lymphadenopathy Lungs-clear to auscultation bilaterally Heart-regular rate regular rhythm Abdomen soft nontender nondistended Extremities-no clubbing cyanosis or edema Assessment and plan: 50-year-old gentleman comes in for screening colonoscopy. He was explained alternatives, risk, benefits including and not was any bleeding, infection, sepsis, perforation, need for emergent surgery and . He will have an ASA of 1. 02/22/21 0636 <Electronically signed by Julien Mcdaniels DO> Cosigner Signature (if applicable): CC: Dr. Sofy Glez DO; Julien Mcdaniels DO Signed Sofy Glez DO Work Phone: Start: 03-05-2018 End: 03-05-2018 Urgent Care Visit Report Comments: See Note; NOTES: [facility] [address] [place] [address] OFFICE VISIT Date of Service: 03/05/18 MR#: [id number] Acct: [id number] Name: NIKOLAI RIVERA Rep #: [id number] : 1970 Provider: Guerrero JACK Age/Sex: 47/M Location: [facility] Status: Signed Intake Vital Signs03/05/18 Height 6 ft 1 in Intake Visit Reasons: HEADACHE, FEVER, CHILLS, CHEST CONGESTION Second Chef Required: No Accompanied by: self Is patient in pain?: No Allergies No Known Allergies Allergy (Unverified 03/05/18 10:40) Medications NK 03/05/18 [History Confirmed 03/05/18] PFSH Medical History Severe headache (Acute) Social History Smoking Status: Never smoker alcohol intake: never HPI HPI Details: NIKOLAI RIVERA, is a 47 M who presents to the office today for complaint of cough, congestion, chills and fatigue for the past 24 hours. Patient states that the cough has been dry, nonproductive and denies hemoptysis, shortness of breath or difficulty breathing. He does report feeling intermittent chills yesterday however did not take his temperature and does not believe he actually had a fever. He has not taken any medications for this current episode. No nausea, vomiting, diarrhea. No known ill contacts. No other associated symptoms or alleviating/aggravating factors. ROS Const Constitutional: Positive for body ache, chills and fatigue; no fever(s) ENT ENT: Positive for nasal congestion and sore throat; no ear pain Resp Respiratory: Positive for cough Cough: Yes non-productive; no shortness of breath, hemoptysis or pain with cough Cardio Cardiology: No chest pain at rest or shortness of breath Musc Musculoskeletal: No abnormal walking Neuro Neurology: No abnormal walking or behavioral changes Psych Psychiatric: No behavioral changes, No mood swings Endo Endocrine: Positive for fatigue Exam Const General: cooperative, no acute distress HENMT Head: normocephalic, atraumatic Ears: hearing grossly normal bilaterally Nose: external nose normal Mouth: oral mucosae normal Throat: posterior oropharynx abnormal erythema; Negative for no exudates Resp Effort AND Inspection: normal respiratory effort Auscultation: Bilateral: Clear to Auscultation Cardio Palpation: normal PMI Rate: regular rate Rhythm: regular rhythm Heart Sounds: S1 normal, S2 normal Neuro General: alert, oriented x3, CN's II-XI intact bilaterally Psych Appearance: grossly normal Mental Status: mental status grossly normal Mood: congruent mood Results [facility] Office Flu A AND B Negative FLU A AND B Last Edit by Betty Hastings on 03/05/18 10:52 Assessment AND Plan Problems 1. URI, acute J06.9 Status Acute Plan Negative flu swab in the office today. Encouraged to get plenty of rest, drink lots of clear liquids, and use Tylenol or Ibuprofen (unless contraindicated) for fever and comfort. Patient also educated on other symptomatic management techniques. To be seen in 7-10 days if no improvement; sooner if worsening of symptoms. Patient advised of potential red flags and when appropriate to report to the ED. Patient verbalized understanding and agreement with all the above. Orders Orders: Coding Level of Care Code Off vis,new,level 3 Diagnoses URI, acute J06.9 03/05/18 1059 <Electronically signed by Guerrero JACK> Date Guerrero JACK Cosigner Signature: Date (if applicable) CC: Sofy Glez Start: 08-14-2014 End: 08-14-2014 Spine Lumbar (Routine) Comments: See Note; NOTES: [facility] Imaging Services [address] [place] [address] MRI Report MR#: [id number] Acct: [id number] Name: NIKOLAI RIVERA Rep #: [id number] : 1970 M 44 From: Patito Johnston MD PCP: Ada Chandra MD Status: REG CLI Study: Spine Lumbar (Routine) Date of Exam: 08/14/14 Exam# [id number] Ordering Dr: Ada Chandra MD STUDY: MRI LUMBAR SPINE WITHOUT CONTRAST REASON FOR EXAM: Male, 44 years old low back pain for 2 years. TECHNIQUE: Standardized fat and water weighted pulse sequences were obtained in the sagittal and axial planes. COMPARISON: None FINDINGS: Normal lumbar lordosis. There is no substantial scoliosis. Normal conus medullaris that terminates at the L1. L1-2: Normal endplates. Normal disc height, hydration and morphology. Normal bilateral facet joints. Normal central canal and bilateral lateral recesses. Normal bilateral intervertebral neural foramina. L2-3: There is disc desiccation and decrease in height in height. There is a small right paramedian disc herniation deforming the ventral thecal sac with mass effect on descending roots. There are degenerative changes of the facet joints. L3-4: There is disc desiccation and decrease in height in height. There is a broad-based foraminal bulge and endplate spur. There are mild degenerative changes of the facet joints. Normal central canal and bilateral lateral recesses. Normal bilateral intervertebral neural foramina. L4-5: There is disc desiccation and decrease in height in height. There is a broad-based left foraminal protrusion and annular fissure. There are degenerative changes of the facet joints. Normal central canal and moderate left foraminal stenosis with impingement of the exiting roots. L5-S1: There is disc desiccation and decrease in height in height. There is broad-based foraminal bulging small central and clear. There are discogenic degenerative changes of the vertebral endplates and facet degenerative arthrosis. There is no significant canal or foraminal stenosis. Normal visualized sacral ala. Normal visualized paraspinous soft tissue structures. IMPRESSION: Left foraminal protrusion and annular tear L4-5 with moderate left foraminal stenosis and impingement of the exiting roots. Small right paramedian L2-3 and mild mass effect on the thecal sac and descending roots. Electronically Signed: Patito Johnston MD at 20:54 EDT Tel , Service support [phone], CC: Ada Chandra MD Field Service Manager: Signed Ada Chandra Work Phone: Start: 12-06-2012 End: 12-06-2012 Liver Comments: See Note; NOTES: [facility] Imaging Services [address] [place] [address] Ultrasound Report MR#: [id number] Acct: [id number] Name: NIKOLAI RIVERA Rep #: [id number] : 1970 M 42 From: Michele Cross MD PCP: Status: REG CLI Study: Liver Date of Exam: 12/06/12 Exam# [id number] Ordering Dr: Kierra Hernandez DO STUDY: ABDOMINAL ULTRASOUND - RIGHT UPPER QUADRANT REASON FOR VISIT: Male, 42 years old. Elevated liver function tests. TECHNIQUE: Ultrasound evaluation of the right upper quadrant was performed with real-time and static schilling-scale imaging. TECHNICAL QUALITY: Adequate. COMPARISON: None. FINDINGS: Liver: The liver measures 16.1 cm. There is normal echogenicity of the liver. The bile ducts are within normal limits. There is hepatic color flow. The direction of portal flow is hepatopetal. There is no demonstrated mass lesion. Gallbladder: Normal distended gallbladder. The gallbladder wall measures 1.8 mm. There is a negative sonographic Upton's sign. There is no pericholecystic fluid. There are no gallstones. Common Bile Duct (C.B.D.): The common bile duct measures 3.5 mm. Pancreas: Normal size of the head, body and tail of the pancreas. There is normal echogenicity of the pancreas. There is no demonstrated pancreatic mass or cyst. Right Kidney: Normal size of the right kidney. The right kidney measures 12.0 cm. Normal renal cortex. The right cortex measures 1.3 cm. There is no demonstrated renal mass or cyst. There is no right hydronephrosis. IMPRESSION: Normal right upper quadrant ultrasound examination. Signed: Michele Cross M.D. December 06, 2012 at 9:19:40 AM EDT [phone] Electronically Signed GP/GP If you are the referring physician and would like to consult with the radiologist who provided this interpretation, please contact Michele Cross M.D. at [phone]. If this radiologist is unavailable, you will be directed to another radiologist to assist. If you are a patient with a question regarding this report, please contact your referring physician directly. Professional Interpretation Provided By: [employer], Phone , These documents contain legally protected and confidential health information intended only for the use of the individual or entity named above. If you are not the intended recipient, you are hereby notified that any disclosure, copying, distribution, or other use of these documents is strictly prohibited. If you have received this information in error, please notify the sender immediately and arrange for the return or destruction of these documents. CC: Kierra Hernandez DO Field Service Manager: Signed Kierra Hernandez Work Phone: Start: 02-13-2006 End: 02-13-2006 Vasectomy Brook Chisholm Plan of Treatment Date Care Activity Detail Author Start: 05-25-2022 Assay of prostate specific antigen total PSA (PROSTATE SPECIFIC ANTIGEN) (V76.44) [facility]; [facility] Work Phone: Start: 05-25-2022 Procedure Education Eprescribe d prescriptions (G8553) [facility]; [facility] Work Phone: Start: 05-25-2022 Provider Instruction s for Treatment [facility]; [facility] Work Phone: Start: 12-27-2021 Procedure Education Eprescribe d prescriptions (G8553) [facility]; [facility] Work Phone: Start: 12-27-2021 Provider Instruction s for Treatment [facility]; [facility] Work Phone: Start: 11-22-2021 Basic metabolic pane l calcium total Metabolic Panel, Basic (19381) [facility]; [facility] Work Phone: Start: 11-22-2021 Procedure Education Eprescribe d prescriptions (G8553) [facility]; [facility] Work Phone: Start: 11-22-2021 Provider Instruction s for Treatment [facility]; [facility] Work Phone: Start: 07-14-2021 Procedure Education Eprescribe d prescriptions (G8553) [facility]; [facility] Work Phone: Start: 07-14-2021 Provider Instruction s for Treatment [facility]; [facility] Work Phone: Start: 04-14-2021 Procedure Education Eprescribe d prescriptions (G8553) [facility]; [facility] Work Phone: Start: 04-14-2021 Provider Instruction s for Treatment [facility]; [facility] Work Phone: Start: 11-02-2020 Assay of prostate specific antigen total PSA (PROSTATE SPECIFIC ANTIGEN) (V76.44) [facility]; [facility] Work Phone: Start: 11-02-2020 Procedure Education Eprescribe d prescriptions (G8553) [facility]; [facility] Work Phone: Start: 11-02-2020 Provider Instruction s for Treatment Reviewed Lab [facility]; [facility] Work Phone: Start: 09-30-2019 Assay of prostate specific antigen total PSA (PROSTATE SPECIFIC ANTIGEN) (V76.44) [facility] Work Phone: Start: 09-30-2019 Procedure Education Eprescribe d prescriptions (G8553) [facility] Work Phone: Start: 09-30-2019 Provider Instruction s for Treatment Reviewed Lab [facility] Work Phone: Start: 11-07-2018 Provider Instruction s for Treatment Reviewed Lab [facility] Work Phone: Start: 11-06-2017 Assay of prostate specific antigen total PSA (PROSTATE SPECIFIC ANTIGEN) (V76.44) [facility] Work Phone: Start: 11-06-2017 Procedure Education Eprescribe d prescriptions (G8553) [facility] Work Phone: Start: 11-06-2017 Provider Instruction s for Treatment Reviewed Lab [facility] Work Phone: Start: 11-02-2016 Procedure Education Eprescribe d prescriptions (G8553) [facility] Work Phone: Start: 11-02-2016 Provider Instruction s for Treatment Reviewed Lab [facility] Work Phone: Start: 11-11-2015 Assay of prostate specific antigen total PSA (PROSTATE SPECIFIC ANTIGEN) (V76.44) [facility] Work Phone: Start: 11-11-2015 Provider Instruction s for Treatment Reviewed Lab [facility] Work Phone: Start: 01-15-2013 Hepatic function panel HEPATIC FUNCTION PANEL (27123) [facility] Work Phone: Start: 11-01-2011 Patient Education High Cholest barry (Hypercholesterolemia) *: cardiovascular health [facility] Work Phone: Start: 11-11-2009 Provider Instruction s for Treatment *Antibiotic Usage Education - Male [facility] Work Phone: Start: 08-31-2009 Glucose [Mass/Vol] Glucose (50953) [facility] Work Phone: Start: 08-31-2009 Glucose quantitative blood xcpt reagent strip Glucose (21023) [facility]; [facility] Work Phone: Start: 08-31-2009 Hepatic function panel HEPATIC FUNCTION PANEL (71540) [facility] Work Phone: Start: 08-31-2009 Lipoprotein blood qu an numbers & subclasses LIPOPROTEIN, BLD, BY NMR (67778) [facility]; [facility] Work Phone: Start: 08-31-2009 Protein [Mass/Vol] LIPOPROTEIN , BLD, BY NMR (86128) [facility] Work Phone: Start: 05-13-2008 Blood count complete auto&auto difrntl wbc CBC, Platelets & Auto Diff (00819) [facility] Work Phone: Comment on above: in six months (appro ximately) Start: 05-13-2008 Comprehensive metabo lic panel Metabolic Panel, Comprehensive (37319) [facility] Work Phone: Comment on above: 2 weeks Start: 05-13-2008 Lipid panel Lipid Panel (14057) [facility] Work Phone: Start: 05-13-2008 Lipoprotein blood qu an numbers & subclasses LIPOPROTEIN, BLD, BY NMR (50938) [facility]; [facility] Work Phone: Comment on above: now Start: 05-13-2008 Protein [Mass/Vol] LIPOPROTEIN , BLD, BY NMR (35369) [facility] Work Phone: Comment on above: now Start: 05-13-2008 Hepatitis b core antibody hbcab total HEPATITIS A, B & C PANELS [facility] Work Phone: Start: 11-06-2007 Urnls dip stick/tabl et rgnt auto w/o microscopy URINALYSIS W/O MICRO (80657) [facility] Work Phone: Start: 11-06-2007 Comprehensive metabo lic panel METABOLIC PANEL, COMPREHENSIVE (51441) [facility] Work Phone: Start: 11-06-2007 Blood count manual c ell count each CBC WITH MANUAL DIFF (66870) [facility] Work Phone: Comment on above: in six months (appro ximately) Start: 11-06-2007 Lipid panel LIPID PANEL (13532) [facility] Work Phone: Comment on above: now Start: 04-24-2007 Assay of thyroid stimulating hormone tsh TSH (06494) [facility]; [facility] Work Phone: Start: 04-24-2007 TSH Qn TSH (46648) [facility] Work Phone: Start: 04-24-2007 Basic metabolic pane l calcium total Metabolic Panel, Basic (99754) [facility] Work Phone: Start: 04-24-2007 Hepatic function panel HEPATIC FUNCTION PANEL (74322) [facility] Work Phone: Comment on above: in six months (appro ximately) Start: 04-24-2007 Lipid panel LIPID PANEL (74868) [facility] Work Phone: [facility] Work [facility]: [facility] Work [facility]: [facility] Work [facility]: [facility] Work Phone: [facility] Work [facility]: [facility] Work Phone: [facility] Work Phone: [facility] Work Phone: Immunizations Immunization Date Immunization Notes Care Provider [facility] 11-23-2023 influenza, seasonal, injectable, preservative free Dr. Sofy Glez DO Work Phone: [facility] 11-23-2022 influenza, injectabl e, quadrivalent, preservative free Dr. Sofy Glez DO Work Phone: [facility] 11-22-2021 influenza, injectabl e, quadrivalent, preservative free Dr. Sofy Glez DO Work Phone: [facility] 11-22-2021 influenza, seasonal, injectable [facility] Work Phone: 11-13-2021 influenza, seasonal, injectable Sofy Glez DO Work Phone: [facility]; [facility] Work Phone: 11-25-2020 influenza, injectabl e, quadrivalent, preservative free Dr. Sofy Glez DO Work Phone: [facility] 11-25-2020 influenza, seasonal, injectable [facility] Work Phone: 02-14-2020 COVID-Pfizer (30 MCG/0.3 ML) Sofy Glez DO Work Phone: [facility]; [facility] Work Phone: 12-23-2019 influenza, injectabl e, quadrivalent, preservative free Dr. Sofy Glez DO Work Phone: [facility] 12-23-2019 influenza, seasonal, injectable [facility] Work Phone: 11-28-2018 influenza, injectabl e, quadrivalent, preservative free Dr. Sofy Glez DO Work Phone: [facility] 11-28-2018 influenza, seasonal, injectable [facility] Work Phone: 12-27-2017 influenza, injectabl e, quadrivalent, preservative free Dr. Sofy Glez DO Work Phone: [facility] 12-27-2017 influenza, seasonal, injectable [facility] Work Phone: 11-30-2016 influenza, injectabl e, quadrivalent, preservative free Dr. Sofy Glez DO Work Phone: [facility] 11-30-2016 influenza, seasonal, injectable [facility] Work Phone: 11-12-2015 influenza, injectabl e, quadrivalent, preservative free Dr. Sofy Glez DO Work Phone: [facility] 11-12-2015 influenza, seasonal, injectable [facility] Work Phone: 11-13-2014 influenza, injectabl e, quadrivalent, preservative free Dr. Sofy Glez DO Work Phone: [facility] 11-13-2014 influenza, seasonal, injectable [facility] Work Phone: 11-12-2013 influenza, injectabl e, quadrivalent, preservative free Dr. Sofy Glez DO Work Phone: [facility] 11-12-2013 influenza, seasonal, injectable [facility] Work Phone: Payers Date Payer Category Payer Self-pay [id number] 2022 Unknown [id number] 2020 Unknown [id number] 2007 Unknown [id number] 1970 Unknown [id number] Unknown Unknown [id number] [id number] Unknown [id number] [id number] Unknown [id number] Unknown [id number] [id number] Unknown [id number] [id number] Unknown [id number] [id number] [id number] Social History Date Type Detail Facility Alcohol Use Alcohol Use [facility] Work Phone: Comment on above: Occasional alcohol u se 1 cup green tea qd o cc. soda Full-time, Physical Thrapist Moderate , Lives with spouse Tobacco use: Tobacco use: [facility] Work Phone: Tobacco use: Tobacco use: [facility] Work Phone: Start: 02[facility]18-2021 [facility] Work Phone: Start: 1970 Sex Assigned At Male [facility] Start: 02-18-2021 Tobacco smoking stat us GAIS Never smoked tobacco (finding) [facility] Sex Male [facility] Clinical Notes Note Date & Type Note Facility Evaluation note No assessment information availa ble [facility] Work Phone: Instructions Name Patient Instructions Indication:Non-smoker Start: 1 Instruction Type:Provider Instructions for Treatment How to Access Health Information Online using Patient Portal and [employer]rd [employer] Apps Indication:Non-smoker Start: 1 Instruction Type:Patient Education How to access health information online Indication:BMI 35.0-35.9,adult Start: 0 Instruction Type:Patient Education How to access health information online - Detail Indication:BMI 35.0-35.9,adult Start: 0 Instruction Type:Patient Education Patient Instructions Indication:BMI 35.0-35.9,adult Start: 0 Instruction Type:Provider Instructions for Treatment How to access health information online Indication:Benign Essential Hypertension Start: 9 Instruction Type:Patient Education How to access health information online - Detail Indication:Benign Essential Hypertension Start: 9 Instruction Type:Patient Education Patient Instructions Indication:Benign Essential Hypertension Start: 9 Instruction Type:Provider Instructions for Treatment How to access health information online Indication:Body mass index 35.0-35.9, adult Start: 8 Instruction Type:Patient Education How to access health information online - Detail Indication:Body mass index 35.0-35.9, adult Start: 8 Instruction Type:Patient Education How to access health information online Indication:BMI 34.0-34.9,adult Start: 7 Instruction Type:Patient Education How to access health information online - Detail Indication:BMI 34.0-34.9,adult Start: 7 Instruction Type:Patient Education Patient Instructions Indication:BMI 34.0-34.9,adult Start: 7 Instruction Type:Provider Instructions for Treatment Patient Instructions Indication:Elevated LFTs Start: 3 Instruction Type:Provider Instructions for Treatment Patient Instructions Indication:Hypercholesteremi a Start: 2 Instruction Type:Provider Instructions for Treatment [facility]; [facility] Work Phone: Instructions* Name Dates Details Patient Instructions Indication:BMI 35.0-35.9,adult Start:14-Apr-2021 Instruction Type:Provider Instructions for Treatment How to Access Health Informa tion Online using Patient Portal and 3rd [employer] Apps Indication:BMI 35.0-35.9,adult Start:14-Apr-2021 Instruction Type:Patient Education Patient Instructions Indication:Non-smoker Start:02-Nov-2020 Instruction Type:Provider Instructions for Treatment How to Access Health Informa tion Online using Patient Portal and [employer]rd [employer] Apps Indication:Non-smoker Start:02-Nov-2020 Instruction Type:Patient Education How to access health informa tion online Indication:BMI 35.0-35.9,adult Start:30-Sep-2019 Instruction Type:Patient Education How to access health informa tion online - Detail Indication:BMI 35.0-35.9,adult Start:30-Sep-2019 Instruction Type:Patient Education Patient Instructions Indication:BMI 35.0-35.9,adult Start:30-Sep-2019 Instruction Type:Provider Instructions for Treatment How to access health informa tion online Indication:Benign Essential Hypertension Start:07-Nov-2018 Instruction Type:Patient Education How to access health informa tion online - Detail Indication:Benign Essential Hypertension Start:07-Nov-2018 Instruction Type:Patient Education Patient Instructions Indication:Benign Essential Hypertension Start:07-Nov-2018 Instruction Type:Provider Instructions for Treatment How to access health informa tion online Indication:Body mass index 35.0-35.9, adult Start:06-Nov-2017 Instruction Type:Patient Education How to access health informa tion online - Detail Indication:Body mass index 35.0-35.9, adult Start:06-Nov-2017 Instruction Type:Patient Education How to access health informa tion online Indication:BMI 34.0-34.9,adult Start:02-Nov-2016 Instruction Type:Patient Education How to access health informa tion online - Detail Indication:BMI 34.0-34.9,adult Start:02-Nov-2016 Instruction Type:Patient Education Patient Instructions Indication:BMI 34.0-34.9,adult Start:02-Nov-2016 Instruction Type:Provider Instructions for Treatment Patient Instructions Indication:Elevated LFTs Start:05-Nov-2012 Instruction Type:Provider Instructions for Treatment Patient Instructions Indication:Hypercholesteremia Start:01-Nov-2011 Instruction Type:Provider Instructions for Treatment [facility]; [facility] Work Phone: Instructions* Name Dates Details Patient Instructions Indication:Non-smoker Start:14-Jul-2021 Instruction Type:Provider Instructions for Treatment How to Access Health Informa tion Online using Patient Portal and [employer]rd [employer] Apps Indication:Non-smoker Start:14-Jul-2021 Instruction Type:Patient Education Patient Instructions Indication:BMI 35.0-35.9,adult Start:14-Apr-2021 Instruction Type:Provider Instructions for Treatment How to Access Health Informa tion Online using Patient Portal and [employer]rd [employer] Apps Indication:BMI 35.0-35.9,adult Start:14-Apr-2021 Instruction Type:Patient Education Patient Instructions Indication:Non-smoker Start:02-Nov-2020 Instruction Type:Provider Instructions for Treatment How to Access Health Informa tion Online using Patient Portal and [employer]rd [employer] Apps Indication:Non-smoker Start:02-Nov-2020 Instruction Type:Patient Education How to access health informa tion online Indication:BMI 35.0-35.9,adult Start:30-Sep-2019 Instruction Type:Patient Education How to access health informa tion online - Detail Indication:BMI 35.0-35.9,adult Start:30-Sep-2019 Instruction Type:Patient Education Patient Instructions Indication:BMI 35.0-35.9,adult Start:30-Sep-2019 Instruction Type:Provider Instructions for Treatment How to access health informa tion online Indication:Benign Essential Hypertension Start:07-Nov-2018 Instruction Type:Patient Education How to access health informa tion online - Detail Indication:Benign Essential Hypertension Start:07-Nov-2018 Instruction Type:Patient Education Patient Instructions Indication:Benign Essential Hypertension Start:07-Nov-2018 Instruction Type:Provider Instructions for Treatment How to access health informa tion online Indication:Body mass index 35.0-35.9, adult Start:06-Nov-2017 Instruction Type:Patient Education How to access health informa tion online - Detail Indication:Body mass index 35.0-35.9, adult Start:06-Nov-2017 Instruction Type:Patient Education How to access health informa tion online Indication:BMI 34.0-34.9,adult Start:02-Nov-2016 Instruction Type:Patient Education How to access health informa tion online - Detail Indication:BMI 34.0-34.9,adult Start:02-Nov-2016 Instruction Type:Patient Education Patient Instructions Indication:BMI 34.0-34.9,adult Start:02-Nov-2016 Instruction Type:Provider Instructions for Treatment Patient Instructions Indication:Elevated LFTs Start:05-Nov-2012 Instruction Type:Provider Instructions for Treatment Patient Instructions Indication:Hypercholesteremia Start:01-Nov-2011 Instruction Type:Provider Instructions for Treatment [facility]; [facility] Work Phone: Instructions* Name Dates Details Patient Instructions Indication:Non-smoker Start:14-Jul-2021 Instruction Type:Provider Instructions for Treatment How to Access Health Informa tion Online using Patient Portal and 3rd [employer] Apps Indication:Non-smoker Start:14-Jul-2021 Instruction Type:Patient Education Patient Instructions Indication:BMI 35.0-35.9,adult Start:14-Apr-2021 Instruction Type:Provider Instructions for Treatment How to Access Health Informa tion Online using Patient Portal and [employer] Apps Indication:BMI 35.0-35.9,adult Start:14-Apr-2021 Instruction Type:Patient Education Patient Instructions Indication:Non-smoker Start:02-Nov-2020 Instruction Type:Provider Instructions for Treatment How to Access Health Informa tion Online using Patient Portal and [employer]rd [employer] Apps Indication:Non-smoker Start:02-Nov-2020 Instruction Type:Patient Education How to access health informa tion online Indication:BMI 35.0-35.9,adult Start:30-Sep-2019 Instruction Type:Patient Education How to access health informa tion online - Detail Indication:BMI 35.0-35.9,adult Start:30-Sep-2019 Instruction Type:Patient Education Patient Instructions Indication:BMI 35.0-35.9,adult Start:30-Sep-2019 Instruction Type:Provider Instructions for Treatment How to access health informa tion online Indication:Benign Essential Hypertension Start:07-Nov-2018 Instruction Type:Patient Education How to access health informa tion online - Detail Indication:Benign Essential Hypertension Start:07-Nov-2018 Instruction Type:Patient Education Patient Instructions Indication:Benign Essential Hypertension Start:07-Nov-2018 Instruction Type:Provider Instructions for Treatment How to access health informa tion online Indication:Body mass index 35.0-35.9, adult Start:06-Nov-2017 Instruction Type:Patient Education How to access health informa tion online - Detail Indication:Body mass index 35.0-35.9, adult Start:06-Nov-2017 Instruction Type:Patient Education How to access health informa tion online Indication:BMI 34.0-34.9,adult Start:02-Nov-2016 Instruction Type:Patient Education How to access health informa tion online - Detail Indication:BMI 34.0-34.9,adult Start:02-Nov-2016 Instruction Type:Patient Education Patient Instructions Indication:BMI 34.0-34.9,adult Start:02-Nov-2016 Instruction Type:Provider Instructions for Treatment Patient Instructions Indication:Elevated LFTs Start:05-Nov-2012 Instruction Type:Provider Instructions for Treatment Patient Instructions Indication:Hypercholesteremia Start:01-Nov-2011 Instruction Type:Provider Instructions for Treatment [facility]; [facility] Work Phone: Instructions* Name Dates Details Patient Instructions Indication:Non-smoker Start:14-Jul-2021 Instruction Type:Provider Instructions for Treatment How to Access Health Informa tion Online using Patient Portal and [employer]rd [employer] Apps Indication:Non-smoker Start:14-Jul-2021 Instruction Type:Patient Education Patient Instructions Indication:BMI 35.0-35.9,adult Start:14-Apr-2021 Instruction Type:Provider Instructions for Treatment How to Access Health Informa tion Online using Patient Portal and [employer]rd [employer] Apps Indication:BMI 35.0-35.9,adult Start:14-Apr-2021 Instruction Type:Patient Education Patient Instructions Indication:Non-smoker Start:02-Nov-2020 Instruction Type:Provider Instructions for Treatment How to Access Health Informa tion Online using Patient Portal and [employer]rd [employer] Apps Indication:Non-smoker Start:02-Nov-2020 Instruction Type:Patient Education How to access health informa tion online Indication:BMI 35.0-35.9,adult Start:30-Sep-2019 Instruction Type:Patient Education How to access health informa tion online - Detail Indication:BMI 35.0-35.9,adult Start:30-Sep-2019 Instruction Type:Patient Education Patient Instructions Indication:BMI 35.0-35.9,adult Start:30-Sep-2019 Instruction Type:Provider Instructions for Treatment How to access health informa tion online Indication:Benign Essential Hypertension Start:07-Nov-2018 Instruction Type:Patient Education How to access health informa tion online - Detail Indication:Benign Essential Hypertension Start:07-Nov-2018 Instruction Type:Patient Education Patient Instructions Indication:Benign Essential Hypertension Start:07-Nov-2018 Instruction Type:Provider Instructions for Treatment How to access health informa tion online Indication:Body mass index 35.0-35.9, adult Start:06-Nov-2017 Instruction Type:Patient Education How to access health informa tion online - Detail Indication:Body mass index 35.0-35.9, adult Start:06-Nov-2017 Instruction Type:Patient Education How to access health informa tion online Indication:BMI 34.0-34.9,adult Start:02-Nov-2016 Instruction Type:Patient Education How to access health informa tion online - Detail Indication:BMI 34.0-34.9,adult Start:02-Nov-2016 Instruction Type:Patient Education Patient Instructions Indication:BMI 34.0-34.9,adult Start:02-Nov-2016 Instruction Type:Provider Instructions for Treatment Patient Instructions Indication:Elevated LFTs Start:05-Nov-2012 Instruction Type:Provider Instructions for Treatment Patient Instructions Indication:Hypercholesteremia Start:01-Nov-2011 Instruction Type:Provider Instructions for Treatment [facility]; [facility] Work Phone: Instructions* Name Dates Details Patient Instructions Indication:BMI 33.0-33.9,adult Start:22-Nov-2021 Instruction Type:Provider Instructions for Treatment How to Access Health Informa tion Online using Patient Portal and [employer]rd [employer] Apps Indication:BMI 33.0-33.9,adult Start:22-Nov-2021 Instruction Type:Patient Education Patient Instructions Indication:Non-smoker Start:14-Jul-2021 Instruction Type:Provider Instructions for Treatment How to Access Health Informa tion Online using Patient Portal and [employer]rd [employer] Apps Indication:Non-smoker Start:14-Jul-2021 Instruction Type:Patient Education Patient Instructions Indication:BMI 35.0-35.9,adult Start:14-Apr-2021 Instruction Type:Provider Instructions for Treatment How to Access Health Informa tion Online using Patient Portal and [employer]rd [employer] Apps Indication:BMI 35.0-35.9,adult Start:14-Apr-2021 Instruction Type:Patient Education Patient Instructions Indication:Non-smoker Start:02-Nov-2020 Instruction Type:Provider Instructions for Treatment How to Access Health Informa tion Online using Patient Portal and [employer] Apps Indication:Non-smoker Start:02-Nov-2020 Instruction Type:Patient Education How to access health informa tion online Indication:BMI 35.0-35.9,adult Start:30-Sep-2019 Instruction Type:Patient Education How to access health informa tion online - Detail Indication:BMI 35.0-35.9,adult Start:30-Sep-2019 Instruction Type:Patient Education Patient Instructions Indication:BMI 35.0-35.9,adult Start:30-Sep-2019 Instruction Type:Provider Instructions for Treatment How to access health informa tion online Indication:Benign Essential Hypertension Start:07-Nov-2018 Instruction Type:Patient Education How to access health informa tion online - Detail Indication:Benign Essential Hypertension Start:07-Nov-2018 Instruction Type:Patient Education Patient Instructions Indication:Benign Essential Hypertension Start:07-Nov-2018 Instruction Type:Provider Instructions for Treatment How to access health informa tion online Indication:Body mass index 35.0-35.9, adult Start:06-Nov-2017 Instruction Type:Patient Education How to access health informa tion online - Detail Indication:Body mass index 35.0-35.9, adult Start:06-Nov-2017 Instruction Type:Patient Education How to access health informa tion online Indication:BMI 34.0-34.9,adult Start:02-Nov-2016 Instruction Type:Patient Education How to access health informa tion online - Detail Indication:BMI 34.0-34.9,adult Start:02-Nov-2016 Instruction Type:Patient Education Patient Instructions Indication:BMI 34.0-34.9,adult Start:02-Nov-2016 Instruction Type:Provider Instructions for Treatment Patient Instructions Indication:Elevated LFTs Start:05-Nov-2012 Instruction Type:Provider Instructions for Treatment Patient Instructions Indication:Hypercholesteremia Start:01-Nov-2011 Instruction Type:Provider Instructions for Treatment [facility] Work Phone: Instructions* Name Dates Details Patient Instructions Indication:BMI 33.0-33.9,adult Start:27-Dec-2021 Instruction Type:Provider Instructions for Treatment How to Access Health Informa tion Online using Patient Portal and [employer] Apps Indication:BMI 33.0-33.9,adult Start:27-Dec-2021 Instruction Type:Patient Education Patient Instructions Indication:BMI 33.0-33.9,adult Start:22-Nov-2021 Instruction Type:Provider Instructions for Treatment How to Access Health Informa tion Online using Patient Portal and [employer] Apps Indication:BMI 33.0-33.9,adult Start:22-Nov-2021 Instruction Type:Patient Education Patient Instructions Indication:Non-smoker Start:14-Jul-2021 Instruction Type:Provider Instructions for Treatment How to Access Health Informa tion Online using Patient Portal and [employer] Apps Indication:Non-smoker Start:14-Jul-2021 Instruction Type:Patient Education Patient Instructions Indication:BMI 35.0-35.9,adult Start:14-Apr-2021 Instruction Type:Provider Instructions for Treatment How to Access Health Informa tion Online using Patient Portal and [employer] Apps Indication:BMI 35.0-35.9,adult Start:14-Apr-2021 Instruction Type:Patient Education Patient Instructions Indication:Non-smoker Start:02-Nov-2020 Instruction Type:Provider Instructions for Treatment How to Access Health Informa tion Online using Patient Portal and [employer] Apps Indication:Non-smoker Start:02-Nov-2020 Instruction Type:Patient Education How to access health informa tion online Indication:BMI 35.0-35.9,adult Start:30-Sep-2019 Instruction Type:Patient Education How to access health informa tion online - Detail Indication:BMI 35.0-35.9,adult Start:30-Sep-2019 Instruction Type:Patient Education Patient Instructions Indication:BMI 35.0-35.9,adult Start:30-Sep-2019 Instruction Type:Provider Instructions for Treatment How to access health informa tion online Indication:Benign Essential Hypertension Start:07-Nov-2018 Instruction Type:Patient Education How to access health informa tion online - Detail Indication:Benign Essential Hypertension Start:07-Nov-2018 Instruction Type:Patient Education Patient Instructions Indication:Benign Essential Hypertension Start:07-Nov-2018 Instruction Type:Provider Instructions for Treatment How to access health informa tion online Indication:Body mass index 35.0-35.9, adult Start:06-Nov-2017 Instruction Type:Patient Education How to access health informa tion online - Detail Indication:Body mass index 35.0-35.9, adult Start:06-Nov-2017 Instruction Type:Patient Education How to access health informa tion online Indication:BMI 34.0-34.9,adult Start:02-Nov-2016 Instruction Type:Patient Education How to access health informa tion online - Detail Indication:BMI 34.0-34.9,adult Start:02-Nov-2016 Instruction Type:Patient Education Patient Instructions Indication:BMI 34.0-34.9,adult Start:02-Nov-2016 Instruction Type:Provider Instructions for Treatment Patient Instructions Indication:Elevated LFTs Start:05-Nov-2012 Instruction Type:Provider Instructions for Treatment Patient Instructions Indication:Hypercholesteremia Start:01-Nov-2011 Instruction Type:Provider Instructions for Treatment [facility] Work Phone: Instructions* Name Dates Details Patient Instructions Indication:BMI 33.0-33.9,adult Start:27-Dec-2021 Instruction Type:Provider Instructions for Treatment How to Access Health Informa tion Online using Patient Portal and [employer] Apps Indication:BMI 33.0-33.9,adult Start:27-Dec-2021 Instruction Type:Patient Education Patient Instructions Indication:BMI 33.0-33.9,adult Start:22-Nov-2021 Instruction Type:Provider Instructions for Treatment How to Access Health Informa tion Online using Patient Portal and [employer] Apps Indication:BMI 33.0-33.9,adult Start:22-Nov-2021 Instruction Type:Patient Education Patient Instructions Indication:Non-smoker Start:14-Jul-2021 Instruction Type:Provider Instructions for Treatment How to Access Health Informa tion Online using Patient Portal and [employer] Apps Indication:Non-smoker Start:14-Jul-2021 Instruction Type:Patient Education Patient Instructions Indication:BMI 35.0-35.9,adult Start:14-Apr-2021 Instruction Type:Provider Instructions for Treatment How to Access Health Informa tion Online using Patient Portal and [employer] Apps Indication:BMI 35.0-35.9,adult Start:14-Apr-2021 Instruction Type:Patient Education Patient Instructions Indication:Non-smoker Start:02-Nov-2020 Instruction Type:Provider Instructions for Treatment How to Access Health Informa tion Online using Patient Portal and [employer] Apps Indication:Non-smoker Start:02-Nov-2020 Instruction Type:Patient Education How to access health informa tion online Indication:BMI 35.0-35.9,adult Start:30-Sep-2019 Instruction Type:Patient Education How to access health informa tion online - Detail Indication:BMI 35.0-35.9,adult Start:30-Sep-2019 Instruction Type:Patient Education Patient Instructions Indication:BMI 35.0-35.9,adult Start:30-Sep-2019 Instruction Type:Provider Instructions for Treatment How to access health informa tion online Indication:Benign Essential Hypertension Start:07-Nov-2018 Instruction Type:Patient Education How to access health informa tion online - Detail Indication:Benign Essential Hypertension Start:07-Nov-2018 Instruction Type:Patient Education Patient Instructions Indication:Benign Essential Hypertension Start:07-Nov-2018 Instruction Type:Provider Instructions for Treatment How to access health informa tion online Indication:Body mass index 35.0-35.9, adult Start:06-Nov-2017 Instruction Type:Patient Education How to access health informa tion online - Detail Indication:Body mass index 35.0-35.9, adult Start:06-Nov-2017 Instruction Type:Patient Education How to access health informa tion online Indication:BMI 34.0-34.9,adult Start:02-Nov-2016 Instruction Type:Patient Education How to access health informa tion online - Detail Indication:BMI 34.0-34.9,adult Start:02-Nov-2016 Instruction Type:Patient Education Patient Instructions Indication:BMI 34.0-34.9,adult Start:02-Nov-2016 Instruction Type:Provider Instructions for Treatment Patient Instructions Indication:Elevated LFTs Start:05-Nov-2012 Instruction Type:Provider Instructions for Treatment Patient Instructions Indication:Hypercholesteremia Start:01-Nov-2011 Instruction Type:Provider Instructions for Treatment [facility] Work Phone: Instructions* Name Dates Details Patient Instructions Indication:BMI 33.0-33.9,adult Start:27-Dec-2021 Instruction Type:Provider Instructions for Treatment How to Access Health Informa tion Online using Patient Portal and [employer] Apps Indication:BMI 33.0-33.9,adult Start:27-Dec-2021 Instruction Type:Patient Education Patient Instructions Indication:BMI 33.0-33.9,adult Start:22-Nov-2021 Instruction Type:Provider Instructions for Treatment How to Access Health Informa tion Online using Patient Portal and [employer] Apps Indication:BMI 33.0-33.9,adult Start:22-Nov-2021 Instruction Type:Patient Education Patient Instructions Start:14-Jul-2021 Instruction Type:Provider Instructions for Treatment How to Access Health Informa tion Online using Patient Portal and [employer] Apps Start:14-Jul-2021 Instruction Type:Patient Education Patient Instructions Indication:BMI 35.0-35.9,adult Start:14-Apr-2021 Instruction Type:Provider Instructions for Treatment How to Access Health Informa tion Online using Patient Portal and [employer] Apps Indication:BMI 35.0-35.9,adult Start:14-Apr-2021 Instruction Type:Patient Education Patient Instructions Start:02-Nov-2020 Instruction Type:Provider Instructions for Treatment How to Access Health Informa tion Online using Patient Portal and [employer] Apps Start:02-Nov-2020 Instruction Type:Patient Education How to access health informa tion online Indication:BMI 35.0-35.9,adult Start:30-Sep-2019 Instruction Type:Patient Education How to access health informa tion online - Detail Indication:BMI 35.0-35.9,adult Start:30-Sep-2019 Instruction Type:Patient Education Patient Instructions Indication:BMI 35.0-35.9,adult Start:30-Sep-2019 Instruction Type:Provider Instructions for Treatment How to access health informa tion online Indication:Benign Essential Hypertension Start:07-Nov-2018 Instruction Type:Patient Education How to access health informa tion online - Detail Indication:Benign Essential Hypertension Start:07-Nov-2018 Instruction Type:Patient Education Patient Instructions Indication:Benign Essential Hypertension Start:07-Nov-2018 Instruction Type:Provider Instructions for Treatment How to access health informa tion online Indication:Body mass index 35.0-35.9, adult Start:06-Nov-2017 Instruction Type:Patient Education How to access health informa tion online - Detail Indication:Body mass index 35.0-35.9, adult Start:06-Nov-2017 Instruction Type:Patient Education How to access health informa tion online Indication:BMI 34.0-34.9,adult Start:02-Nov-2016 Instruction Type:Patient Education How to access health informa tion online - Detail Indication:BMI 34.0-34.9,adult Start:02-Nov-2016 Instruction Type:Patient Education Patient Instructions Indication:BMI 34.0-34.9,adult Start:02-Nov-2016 Instruction Type:Provider Instructions for Treatment Patient Instructions Indication:Elevated LFTs Start:05-Nov-2012 Instruction Type:Provider Instructions for Treatment Patient Instructions Indication:Hypercholesteremia Start:01-Nov-2011 Instruction Type:Provider Instructions for Treatment [facility] Work Phone: Instructions* Name Dates Details Patient Instructions Indication:BMI 34.0-34.9,adult Start:25-May-2022 Instruction Type:Provider Instructions for Treatment How to Access Health Informa tion Online using Patient Portal and [employer] Apps Indication:BMI 34.0-34.9,adult Start:25-May-2022 Instruction Type:Patient Education Patient Instructions Indication:BMI 33.0-33.9,adult Start:27-Dec-2021 Instruction Type:Provider Instructions for Treatment How to Access Health Informa tion Online using Patient Portal and [employer] Apps Indication:BMI 33.0-33.9,adult Start:27-Dec-2021 Instruction Type:Patient Education Patient Instructions Indication:BMI 33.0-33.9,adult Start:22-Nov-2021 Instruction Type:Provider Instructions for Treatment How to Access Health Informa tion Online using Patient Portal and [employer] Apps Indication:BMI 33.0-33.9,adult Start:22-Nov-2021 Instruction Type:Patient Education Patient Instructions Indication:Non-smoker Start:14-Jul-2021 Instruction Type:Provider Instructions for Treatment How to Access Health Informa tion Online using Patient Portal and [employer] Apps Indication:Non-smoker Start:14-Jul-2021 Instruction Type:Patient Education Patient Instructions Indication:BMI 35.0-35.9,adult Start:14-Apr-2021 Instruction Type:Provider Instructions for Treatment How to Access Health Informa tion Online using Patient Portal and [employer] Apps Indication:BMI 35.0-35.9,adult Start:14-Apr-2021 Instruction Type:Patient Education Patient Instructions Indication:Non-smoker Start:02-Nov-2020 Instruction Type:Provider Instructions for Treatment How to Access Health Informa tion Online using Patient Portal and [employer] Apps Indication:Non-smoker Start:02-Nov-2020 Instruction Type:Patient Education How to access health informa tion online Indication:BMI 35.0-35.9,adult Start:30-Sep-2019 Instruction Type:Patient Education How to access health informa tion online - Detail Indication:BMI 35.0-35.9,adult Start:30-Sep-2019 Instruction Type:Patient Education Patient Instructions Indication:BMI 35.0-35.9,adult Start:30-Sep-2019 Instruction Type:Provider Instructions for Treatment How to access health informa tion online Indication:Benign Essential Hypertension Start:07-Nov-2018 Instruction Type:Patient Education How to access health informa tion online - Detail Indication:Benign Essential Hypertension Start:07-Nov-2018 Instruction Type:Patient Education Patient Instructions Indication:Benign Essential Hypertension Start:07-Nov-2018 Instruction Type:Provider Instructions for Treatment How to access health informa tion online Indication:Body mass index 35.0-35.9, adult Start:06-Nov-2017 Instruction Type:Patient Education How to access health informa tion online - Detail Indication:Body mass index 35.0-35.9, adult Start:06-Nov-2017 Instruction Type:Patient Education How to access health informa tion online Indication:BMI 34.0-34.9,adult Start:02-Nov-2016 Instruction Type:Patient Education How to access health informa tion online - Detail Indication:BMI 34.0-34.9,adult Start:02-Nov-2016 Instruction Type:Patient Education Patient Instructions Indication:BMI 34.0-34.9,adult Start:02-Nov-2016 Instruction Type:Provider Instructions for Treatment Patient Instructions Indication:Elevated LFTs Start:05-Nov-2012 Instruction Type:Provider Instructions for Treatment Patient Instructions Indication:Hypercholesteremia Start:01-Nov-2011 Instruction Type:Provider Instructions for Treatment [facility] Work Phone: reason for referral (narrative)No reason for referral [facility] Work [facility]: Family History No Family History Records FoundUnknown Family Member Name Dates Details Brother 1 Comments:healthy Status:Active Brother 2 Comments:healthy Status:Active Brother 3 Comments:healthy Status:Active Father Comments:obesity, DM II Status:Active Maternal Grandfather Comments:Type II diabetes Status:Active Maternal Grandmother Comments:hx CVA Status:Active Mother Comments:healthy Status:Active Unknown Family Member Name Dates Details Brother 1 Comments:healthy Status:Active Brother 2 Comments:healthy Status:Active Brother 3 Comments:healthy Status:Active Father Comments:obesity, DM II Status:Active Maternal Grandfather Comments:Type II diabetes Status:Active Maternal Grandmother Comments:hx CVA Status:Active Mother Comments:healthy Status:Active Unknown Family Member Name Dates Details Brother 1 Comments:healthy Status:Active Brother 2 Comments:healthy Status:Active Brother 3 Comments:healthy Status:Active Father Comments:obesity, DM II Status:Active Maternal Grandfather Comments:Type II diabetes Status:Active Maternal Grandmother Comments:hx CVA Status:Active Mother Comments:healthy Status:Active Unknown Family Member Name Dates Details Brother 1 Comments:healthy Status:Active Brother 2 Comments:healthy Status:Active Brother 3 Comments:healthy Status:Active Father Comments:obesity, DM II Status:Active Maternal Grandfather Comments:Type II diabetes Status:Active Maternal Grandmother Comments:hx CVA Status:Active Mother Comments:healthy Status:Active Unknown Family Member Name Dates Details Brother 1 Comments:healthy Status:Active Brother 2 Comments:healthy Status:Active Brother 3 Comments:healthy Status:Active Father Comments:obesity, DM II Status:Active Maternal Grandfather Comments:Type II diabetes Status:Active Maternal Grandmother Comments:hx CVA Status:Active Mother Comments:healthy Status:Active Unknown Family Member Name Dates Details Brother 1 Comments:healthy Status:Active Brother 2 Comments:healthy Status:Active Brother 3 Comments:healthy Status:Active Father Comments:obesity, DM II Status:Active Maternal Grandfather Comments:Type II diabetes Status:Active Maternal Grandmother Comments:hx CVA Status:Active Mother Comments:healthy Status:Active Unknown Family Member Name Dates Details Brother 1 Comments:healthy Status:Active Brother 2 Comments:healthy Status:Active Brother 3 Comments:healthy Status:Active Father Comments:obesity, DM II Status:Active Maternal Grandfather Comments:Type II diabetes Status:Active Maternal Grandmother Comments:hx CVA Status:Active Mother Comments:healthy Status:Active Unknown Family Member Name Dates Details Brother 1 Comments:healthy Status:Active Brother 2 Comments:healthy Status:Active Brother 3 Comments:healthy Status:Active Father Comments:obesity, DM II Status:Active Maternal Grandfather Comments:Type II diabetes Status:Active Maternal Grandmother Comments:hx CVA Status:Active Mother Comments:healthy Status:Active Unknown Family Member Name Dates Details Brother 1 Comments:healthy Status:Active Brother 2 Comments:healthy Status:Active Brother 3 Comments:healthy Status:Active Father Comments:obesity, DM II Status:Active Maternal Grandfather Comments:Type II diabetes Status:Active Maternal Grandmother Comments:hx CVA Status:Active Mother Comments:healthy Status:Active Unknown Family Member Name Dates Details Brother 1 Comments:healthy Status:Active Brother 2 Comments:healthy Status:Active Brother 3 Comments:healthy Status:Active Father Comments:obesity, DM II Status:Active Maternal Grandfather Comments:Type II diabetes Status:Active Maternal Grandmother Comments:hx CVA Status:Active Mother Comments:healthy Status:Active Instructions Name Dates Details How to access health informa tion online Indication:BMI 35.0-35.9,adult Start:30-Sep-2019 Instruction Type:Patient Education How to access health informa tion online - Detail Indication:BMI 35.0-35.9,adult Start:30-Sep-2019 Instruction Type:Patient Education Patient Instructions Indication:BMI 35.0-35.9,adult Start:30-Sep-2019 Instruction Type:Provider Instructions for Treatment How to access health informa tion online Indication:Benign Essential Hypertension Start:07-Nov-2018 Instruction Type:Patient Education How to access health informa tion online - Detail Indication:Benign Essential Hypertension Start:07-Nov-2018 Instruction Type:Patient Education Patient Instructions Indication:Benign Essential Hypertension Start:07-Nov-2018 Instruction Type:Provider Instructions for Treatment How to access health informa tion online Indication:Body mass index 35.0-35.9, adult Start:06-Nov-2017 Instruction Type:Patient Education How to access health informa tion online - Detail Indication:Body mass index 35.0-35.9, adult Start:06-Nov-2017 Instruction Type:Patient Education How to access health informa tion online Indication:BMI 34.0-34.9,adult Start:02-Nov-2016 Instruction Type:Patient Education How to access health informa tion online - Detail Indication:BMI 34.0-34.9,adult Start:02-Nov-2016 Instruction Type:Patient Education Patient Instructions Indication:BMI 34.0-34.9,adult Start:02-Nov-2016 Instruction Type:Provider Instructions for Treatment Patient Instructions Indication:Elevated LFTs Start:05-Nov-2012 Instruction Type:Provider Instructions for Treatment Patient Instructions Indication:Hypercholesteremia Start:01-Nov-2011 Instruction Type:Provider Instructions for Treatment Advance Directives No Advanced Directives Records Found Advance Directive Response Recorded Date/ Time Living Will No February 18 2:06pm Power of Election Judge No February 18 022 2:06pm Summary Purpose Chief Complaint and Reason for Visit Chief Complaint Admit Date EMPLOYEE [employer]S September 27, 2024 4: 12pm PSA November 05, 2024 8:42am HYPERCHLOESTEREMIA November 13, 2024 7: 36am Additional Source Comments Goals (unrecognized section and content) Goals may be documented in a n alternate sectionGoals may be documented in an alternate section (unrecognized sect ion and content) No Status Records FoundNo Status Records Found INFORMATION SOURCE (unrecogn ized section and content) DATE CREATED AUTHOR 05/27/2022 [facility] DATE CREATED AUTHOR AUTHOR'S ORGANIZ ATION 12/26/2024 [facility] Care Teams (unrecognized sec tion and content) Team Status: Active Member Role/Relationship Status Dates Dr. Sofy Glez DO Primary care physician Active Team Status: Active Member Role/Relationship Status Dates Dr. Sofy Glez DO Primary care physician Active Start: September 27, 2024 Health Risk Assessment Attending physician Active Start: September 27, 2024 Health Risk Assessment Referring Provider Active Start: September 27, 2024 Team Status: Inactive Member Role/Relationship Status Dates Dr. Sofy Glez DO Primary care physician Active Start: November 05, 2024 End: November 05, 2024 Dr. Sofy Glez DO Attending physician Active Start: November 05, 2024 End: November 05, 2024 Dr. Sofy Glez DO Referring Provider Active Start: November 05, 2024 End: November 05, 2024 Team Status: Active Member Role/Relationship Status Dates Dr. Sofy Glez DO Primary care physician Active Start: November 13, 2024 Dr. Sofy Glez DO Attending physician Active Start: November 13, 2024 Dr. Sofy Glez , DO Referring Provider Active Start: November 13, 2024 FOR RECORDS PERTAINING TO PATIENTS WHO ARE OR HAVE BEEN ENROLLED IN A CHEMICAL DEPENDENCY/SUBSTANCEABUSE PROGRAM, SOME INFORMATION MAY BE OMITTED. This clinical summary was aggregated from multiple sources. Caution should be exercised in using it in the provision of clinical care. This summary normalizes information from multiple sources, and as a consequence, information in this document may materially change the coding, format and clinical context of patient data. In addition, data may be omitted in some cases. CLINICAL DECISIONS SHOULD BE BASED ON THE PRIMARY CLINICAL RECORDS. [facility] provides no warranty or guarantee of the accuracy or completeness of information in this document.
== END | disposition home or self-care (01) ==
LOC: OPMRI 07:13
PROVIDERS: PCP Internal Medicine; Referring Provider Student in an Organized Health Care Education/Training Program; Visit Provider Student in an Organized Health Care Education/Training Program
DX: M51.362 Other intervertebral disc degeneration, lumbar region with discogenic back pain and lower extremity pain (principal); M54.50 Low back pain, unspecified
CPT/HCPCS: 72148